=== PATIENT | male | born 1945 | race Caucasian/White ===

== ENCOUNTER 2022-07-03 12:51 | Emergency (ER) | payer MEDICARE, SELFPAY ==
--- NOTE | ~2022-07-03 | CT_ITS ---
EXAMINATION: CT ANGIOGRAM OF THE CHEST WITH AND WITHOUT CONTRAST (CT PULMONARY ANGIOGRAM FOR PE) CLINICAL INFORMATION: Reason for Exam elevated d dimer, chest pain COMPARISON: None TECHNIQUE: Prior to contrast administration, noncontrast localization images were obtained. Subsequently, multidetector volumetric imaging was performed from the thoracic inlet to below the diaphragms following the administration of 75 mL Omnipaque 350 intravenous contrast. No contrast reaction reported Sagittal, coronal, and MIP oblique sagittal reformatted images were obtained on the CT workstation, uploaded to PACS, and reviewed. This CT examination was performed using dose optimization techniques as appropriate, variously including the following: *Automated exposure control *Adjustment of mA and/or kV according to patient size (this includes techniques or standardized protocols for targeted exams where dose is matched to indication/reason for exam; i.e. extremities or head) *Use of iterative reconstruction technique Total exam dose-length product 542 mGy-cm FINDINGS: QUALITY OF STUDY/CONTRAST BOLUS: Satisfactory. PULMONARY ARTERIES: There is low attenuation within a segmental pulmonary artery extending into the middle lobe bifurcation. Seen on image 224. Coronal image 49-51. I must consider PE here. Otherwise no convincing evidence of filling defect to suggest a pulmonary embolism. The septum is not bowed. There is no reflux of contrast into the liver. The thoracic inlet is within normal limits. The axillary regions are felt to be unremarkable. Partially imaged upper abdominal structures within normal limits. Partial imaging the palpable cyst in the right kidney. Centrally there is no evidence for bulky adenopathy. Some shotty nodes are noted. Imaging the lung griffin. Right lung; There is evidence for COPD. Probable chronic lung markings. No convincing evidence for an acute infiltrate. 2 mm nodule on image 241 of series 7. 4 mm nodule on image 270 anterior. 4 mm pleural-based nodule on image 258. Mild nodularity in the major fissure likely small lymph nodes. Left lung; Again no convincing evidence for significant infiltrate or effusion. 5 mm nodule in the left upper lung on image 68 3 mm nodule near the major fissure on image 115 3 mm nodule on image 125 laterally 4 mm nodule laterally on image 215 Some minimal nodularity in the major fissure may be small lymph nodes. Review of the bone windows does not demonstrate evidence for bony lesion. CT/CT angio chest PE protocol IMPRESSION: Findings as described above. I must consider a PE within a segment of the right middle lobe pulmonary artery. No effusion. Probable chronic markings. No significant infiltrate. There is COPD. Scattered areas of lung nodularity described above. Recommendation is low-dose noncontrast 3-6 months for continued evaluation.. This critical result was discussed with Sophia White at 5:36 PM on 07/03/2022 and it was ascertained that the content and urgency of the report was understood at the time of direct communication. VTE: positive
--- NOTE | ~2022-07-03 | XR_ITS ---
EXAMINATION: XR CHEST CLINICAL INFORMATION: Chest pain. COMPARISON: None TECHNIQUE: 2 views of the chest were obtained. FINDINGS: Mild linear markings are seen in the lingula. The left upper lung field and right lung are clear. There are no pleural effusions. The heart and mediastinal structures are unremarkable. XR/XR chest 2V IMPRESSION: Mild linear atelectasis versus scarring in the lingula. No acute cardiopulmonary process.
--- NOTE | 2022-07-03 12:58 | ECG_ITS ---
Test Reason : chest pain Blood Pressure : / mmHG Vent. Rate : 067 BPM Atrial Rate : 082 BPM P-R Int : 264 ms QRS Dur : 110 ms QT Int : 432 ms P-R-T Axes : 050 091 023 degrees QTc Int : 456 ms Sinus rhythm with marked sinus arrhythmia with 1st degree A-V block Rightward axis Intra-ventricular conduction delay Low voltage QRS Abnormal ECG No previous ECGs available Referred By: Sosa White Electronically Signed By:GISELL STACY MD
--- NOTE | 2022-07-03 13:03 | ED.GENADULT ---
HPI - General Adult General Chief complaint: Chest Pain Stated complaint: UPPER CHEST DISCOMFORT WHILE DRIVING,FEELS BETTER Time Seen by Provider: 07/03/22 13:03 Source: patient, family () and EMS Mode of arrival: EMS Limitations: no limitations History of Present Illness HPI narrative: Patient is a 77 year old assigned male at with a history of an LA in 1992 or 1993 presenting to the emergency department today with chest pain that has resolved. Patient states that he had what felt like heart burn earlier, took 2 tums, the pain got better, and then the pain came on again while he was driving. Patient states that when the pain came on the final time, he got somewhat dizzy and then it resolved. Patient states that he is currently pain free. Patient states he takes a daily ASA but no other anti-coagulation medications. Patient denies any current dizziness, lightheadedness, abdominal pain, nausea, vomiting, fever, chills, blurry vision, double vision, loss of vision, chest pain, difficulty breathing, shortness of breath, back pain, night sweats, pain with urination, increased urinary frequency, increased urinary urgency, blood in his urine or stool, syncope or a near syncopal episode, recent trauma or falls, bowel incontinence, bladder incontinence, bowel retention, bladder retention, or any other complaints at this time. Location: chest Radiation: non-radiation Severity: mild Severity scale (1-10): 2 Pain Consistency: now resolved Relieving factors: none Exacerbating factors: none Associated symptoms: denies other symptoms Treatments prior to arrival: none Related Data Previous Rx's Medication Instructions Recorded apixaban 5 mg (74 tabs) tablets in 5 mg PO BID #74 ea 07/03/22 a dose pack (Eliquis DVT-PE Treat 30D Start) Allergies Allergy/AdvReac Type Severity Reaction Status Date / Time Unable to Assess Allergy Verified 07/03/22 13:17 Review of Systems Constitutional: Constitutional: Reports no additional constitutional complaints, Denies chills, Denies fever(s) and Denies night sweats Eyes: Eyes: Reports no additional eye complaints, Denies blurry vision, Denies change in vision, Denies diplopia, Denies eye discharge, Denies loss of vision and Denies eye pain ENT: Denies dizziness Cardiovascular: Cardiovascular: Reports no additional cardiovascular complaints, Reports chest pain (resolved), Denies lightheadedness, Denies Loss of Consciousness and Denies dyspnea Respiratory: Respiratory: Reports no additional respiratory complaints and Denies dyspnea Gastrointestinal: Gastrointestinal: Reports no additional gastrointestinal complaints, Denies abdominal pain, Denies melena, Denies hematochezia, Denies change in bowel habits and Denies change in stool character Genitourinary: Genitourinary: Reports no additional male genitourinary complaints, Denies hematuria, Denies oliguria, Denies difficulty urinating, Denies dysuria, Denies urinary frequency, Denies urinary hesitancy, Denies urinary incontinence and Denies urinary urgency Musculoskeletal: Musculoskeletal: Reports no additional musculoskeletal complaints, Denies numbness and Denies tingling Neurologic: Denies dizziness, Denies loss of vision, Denies numbness and Denies tingling Psychiatric: Psychiatric: Reports no additional psychiatric complaints Endocrine: Endocrine: Reports no additional endocrine complaints Hematologic/Lymphatic: Hematologic/Lymphatic: Reports no additional hematologic/lymphatic complaints Allergic/Immunologic: Allergic/Immunologic: Reports no additional allergic/immunologic complaints PMFSH Past Medical History Attestation statement: The following information was validated with the patient. Source: old records reviewed Social History Social History Advance Directives: No Physical Exam ED Vital Signs: Vital Signs - 24 hr 07/03/22 13:07 07/03/22 13:52 07/03/22 16:00 Temperature 97.8 F 97.7 F Pulse Rate 96 83 55 Respiratory Rate 18 16 18 Blood Pressure 142/75 H 147/67 H Pulse Oximetry 99 99 98 Oxygen Delivery Method Room Air Room Air Room Air 07/03/22 18:00 Temperature 97.7 F Pulse Rate 54 Respiratory Rate 16 Blood Pressure 134/71 Pulse Oximetry 94 Oxygen Delivery Method Room Air BMI result Body Mass Index 30.8 Const General: cooperative, no acute distress, alert and awake Nutritional Appearance: well nourished Orientation/consciousness: patient oriented x3 Limitations: no limitations HENMT Head: Yes normal to inspection and Yes atraumatic Ears: hearing grossly normal bilaterally and external ears normal General nose exam: Normal external nose present, no nasal discharge noted and no epistaxis Face and sinus: Yes normal facial exam, No abrasion and No laceration Mouth: Normal oral and palatal mucosa present, no drooling and no muffled voice Eyes General: appearance normal, both eyes and all related structures Periorbital: periorbital findings normal Eyelids: Yes eyelids normal Conjunctivae: conjunctivae normal Pupils: Equal, round and reactive pupils present EOM: EOMs intact bilaterally Neck Neck: Yes normal visual inspection, Yes full ROM and Yes no lymphadenopathy Chest Chest palpation & inspection: normal inspection of the chest Resp Effort & Inspection: normal respiratory effort and able to speak in complete sentences Auscultation: clear to auscultation bilaterally Cardio Rate: regular rate Rhythm: regular rhythm GI Inspection: Yes normal to inspection Neuro General: patient oriented x3 and moves all extremities Cranial nerves: Yes Equal, round and reactive pupils present Cognition (Neuro): normal cognition Motor exam (neuro): 5/5 motor strength present throughout Sensory Exam: Normal double simultaneous stimulation for sensation Coordination: [id number] test normal Extrem General: Yes normal to inspection, Yes full ROM and Yes capillary refill normal Psych Appearance: grossly normal Mental Status: mental status grossly normal Affect: normal affect Attitude: cooperative Thought process: Normal thought process present Thought content: Normal thought content present Insight: Good insight present (Psych) Medications Administered Discontinued Medications Generic Name Dose Route Start Last Admin Trade Name Freq PRN Reason Stop Dose Admin Iohexol 100 ml 07/03/22 16:40 07/03/22 16:40 Iohexol 350 Mg/Ml 100 Ml Infus..Btl IV 07/03/22 16:41 75 ml ONCE ONE Administration Medical Decision Making [facility] Narrative Medical decision making narrative: Patient is a 77 year old assigned male at with a history of a previous LA presenting to the emergency department today after an episode of chest pain. Patient's physical exam was unremarkable. Patient's blood work showed an elevated d dimer of 304 but was otherwise unremarkable. Patient's inital troponin was 4.9 with a repeat of 3.8. Patient's EKG was unremarkable. Patient's chest x-ray showed no acute process. Due to the patient's elevated D dimer and previous episode of chest pain, a CT PE of the chest was obtained that showed a small segmental PE of the right middle lobe pulmonary artery. When speaking to the radiologist, he felt that it could be an old finding but couldn't be for sure. Radiologist stated very plainly that there was no right heart strain. Upon reassessment patient was in no acute pulmonary distress and was saturating >95% throughout his entire stay in the Emergency Department. Patient to be discharged on Eliquis. I explained my physical exam findings as well as all test results to the patient and the patient's . I answered all questions asked by the patient and the patient's . I stressed the importance of the patient taking his medication as prescribed. 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 I stressed the importance of the patient returning to the emergency department immediately if his symptoms were to worsen or if he were to develop any dizziness, shortness of breath, difficulty breathing, chest pain, blurry vision, loss of vision, nausea, vomiting, abdominal pain, fever, chills, back pain, or any other complaints. Patient and the patient's verbalized agreement and understanding with this treatment plan and discharge. Medical Records Medical records reviewed: Yes I reviewed the patient's medical records. Lab Data Lab results reviewed: Yes I reviewed the patient's lab results. Result diagrams: 07/03/22 13:54 07/03/22 14:40 Labs: Lab Results 07/03/22 07/03/22 07/03/22 Range/Units 13:50 13:50 13:54 WBC 9.6 (4.8-10.8) X10*3/uL RBC 5.02 (4.60-5.80) X10*6/uL Hgb 16.2 (14.0-18.0) g/dl Hct 47.3 (42.0-52.0) % MCV 94.2 (80.0-98.0) fL MCH 32.3 (27.0-33.0) pg MCHC 34.2 (31.0-36.0) g/dl RDW 14.1 (11.0-16.0) % Plt Count 117 L (160-400) X10*3/uL MPV 10.0 (9.4-12.4) fL Immature Gran % (Auto) 0.4 (0.0-0.4) % Neut % (Auto) 74.8 H (45-73) % Lymph % (Auto) 14.3 L (20-40) % [place] % (Auto) 7.3 (2-11) % Eos % (Auto) 2.6 (0-4) % Baso % (Auto) 0.6 (0-2) % Lymph # (Auto) 1.4 (1.2-4.9) X10*3/uL [place] # (Auto) 0.7 (0.1-1.2) X10*3/uL Eos # (Auto) 0.3 (0.0-0.4) X10*3/uL Baso # (Auto) 0.1 (0.0-0.2) X10*3/uL Abs Immat Gran (auto) 0.04 H (0.00-0.03) X10*3/uL Absolute Neuts (auto) 7.2 (2.0-8.3) x10*3/uL Absolute Nucleated RBC 0.000 (0.0-0.012) X10*3/uL Nucleated RBC % (auto) 0.0 (0.0-0.2) /100WBC PT 11.5 (10.0-13.1) SEC INR 1.0 (0.9-1.1) APTT 29.9 (26.0-36.4) SEC D-Dimer High Sensitivty NG/ML Sodium (135-145) mmol/L Potassium (3.3-5.1) mmol/L Chloride (96-108) mmol/L Carbon Dioxide (22-29) mmol/L Anion Gap (12-20) BUN (9-16) mg/dL Creatinine (0.5-1.4) mg/dL Estim Creat Clear Calc Estimated GFR Random Glucose (60-115) mg/dL Calcium (8.4-10.2) mg/dL Magnesium (1.6-2.6) mg/dL Total Bilirubin (0.0-1.0) mg/dL AST (5-37) U/L ALT (0-40) U/L Alkaline Phosphatase (39-117) U/L Troponin I High Sens 4.9 (<3.5-35.0) ng/L B-Natriuretic Peptide (<100) pg/mL Total Protein (6.5-8.0) g/dL Albumin (3.5-5.0) g/dL 07/03/22 07/03/22 07/03/22 Range/Units 13:54 14:40 16:10 WBC (4.8-10.8) X10*3/uL RBC (4.60-5.80) X10*6/uL Hgb (14.0-18.0) g/dl Hct (42.0-52.0) % MCV (80.0-98.0) fL MCH (27.0-33.0) pg MCHC (31.0-36.0) g/dl RDW (11.0-16.0) % Plt Count (160-400) X10*3/uL MPV (9.4-12.4) fL Immature Gran % (Auto) (0.0-0.4) % Neut % (Auto) (45-73) % Lymph % (Auto) (20-40) % [place] % (Auto) (2-11) % Eos % (Auto) (0-4) % Baso % (Auto) (0-2) % Lymph # (Auto) (1.2-4.9) X10*3/uL [place] # (Auto) (0.1-1.2) X10*3/uL Eos # (Auto) (0.0-0.4) X10*3/uL Baso # (Auto) (0.0-0.2) X10*3/uL Abs Immat Gran (auto) (0.00-0.03) X10*3/uL Absolute Neuts (auto) (2.0-8.3) x10*3/uL Absolute Nucleated RBC (0.0-0.012) X10*3/uL Nucleated RBC % (auto) (0.0-0.2) /100WBC PT (10.0-13.1) SEC INR (0.9-1.1) APTT (26.0-36.4) SEC D-Dimer High Sensitivty 304 NG/ML Sodium 141 (135-145) mmol/L Potassium 4.7 (3.3-5.1) mmol/L Chloride 105 (96-108) mmol/L Carbon Dioxide 23 (22-29) mmol/L Anion Gap 18 (12-20) BUN 25 H (9-16) mg/dL Creatinine 1.30 (0.5-1.4) mg/dL Estim Creat Clear Calc 63.4 Estimated GFR 54 Random Glucose 112 (60-115) mg/dL Calcium 9.5 (8.4-10.2) mg/dL Magnesium 2.0 (1.6-2.6) mg/dL Total Bilirubin 1.4 H (0.0-1.0) mg/dL AST 23 (5-37) U/L ALT 21 (0-40) U/L Alkaline Phosphatase 50 (39-117) U/L Troponin I High Sens (<3.5-35.0) ng/L B-Natriuretic Peptide 95 (<100) pg/mL Total Protein 7.8 (6.5-8.0) g/dL Albumin 4.3 (3.5-5.0) g/dL 07/03/22 Range/Units 18:19 WBC (4.8-10.8) X10*3/uL RBC (4.60-5.80) X10*6/uL Hgb (14.0-18.0) g/dl Hct (42.0-52.0) % MCV (80.0-98.0) fL MCH (27.0-33.0) pg MCHC (31.0-36.0) g/dl RDW (11.0-16.0) % Plt Count (160-400) X10*3/uL MPV (9.4-12.4) fL Immature Gran % (Auto) (0.0-0.4) % Neut % (Auto) (45-73) % Lymph % (Auto) (20-40) % [place] % (Auto) (2-11) % Eos % (Auto) (0-4) % Baso % (Auto) (0-2) % Lymph # (Auto) (1.2-4.9) X10*3/uL [place] # (Auto) (0.1-1.2) X10*3/uL Eos # (Auto) (0.0-0.4) X10*3/uL Baso # (Auto) (0.0-0.2) X10*3/uL Abs Immat Gran (auto) (0.00-0.03) X10*3/uL Absolute Neuts (auto) (2.0-8.3) x10*3/uL Absolute Nucleated RBC (0.0-0.012) X10*3/uL Nucleated RBC % (auto) (0.0-0.2) /100WBC PT (10.0-13.1) SEC INR (0.9-1.1) APTT (26.0-36.4) SEC D-Dimer High Sensitivty NG/ML Sodium (135-145) mmol/L Potassium (3.3-5.1) mmol/L Chloride (96-108) mmol/L Carbon Dioxide (22-29) mmol/L Anion Gap (12-20) BUN (9-16) mg/dL Creatinine (0.5-1.4) mg/dL Estim Creat Clear Calc Estimated GFR Random Glucose (60-115) mg/dL Calcium (8.4-10.2) mg/dL Magnesium (1.6-2.6) mg/dL Total Bilirubin (0.0-1.0) mg/dL AST (5-37) U/L ALT (0-40) U/L Alkaline Phosphatase (39-117) U/L Troponin I High Sens 3.8 (<3.5-35.0) ng/L B-Natriuretic Peptide (<100) pg/mL Total Protein (6.5-8.0) g/dL Albumin (3.5-5.0) g/dL Imaging Data Chest x-ray: Attestation: I personally reviewed and interpreted this imaging study as follows: My impression: No acute process. Radiologist's impression: EXAMINATION: XR CHEST CLINICAL INFORMATION: Chest pain. COMPARISON: None TECHNIQUE: 2 views of the chest were obtained. FINDINGS: Mild linear markings are seen in the lingula. The left upper lung field and right lung are clear. There are no pleural effusions. The heart and mediastinal structures are unremarkable. XR/XR chest 2V IMPRESSION: Mild linear atelectasis versus scarring in the lingula. No acute cardiopulmonary process. Dictated By: Sam Garcia MD Signed By: Electronically signed by Sam Garcia MD 07/03/[address] scan - chest: Attestation: I personally reviewed and interpreted this imaging study as follows: My impression: Right segmental PE Radiologist's impression: EXAMINATION: CT ANGIOGRAM OF THE CHEST WITH AND WITHOUT CONTRAST (CT PULMONARY ANGIOGRAM FOR PE) CLINICAL INFORMATION: Reason for Exam elevated d dimer, chest pain COMPARISON: None? TECHNIQUE: Prior to contrast administration, noncontrast localization images were obtained. ? Subsequently, multidetector volumetric imaging was performed from the thoracic inlet to below the diaphragms following the administration of 75 mL Omnipaque 350 intravenous contrast. No contrast reaction reported Sagittal, coronal, and MIP oblique sagittal reformatted images were obtained on the CT workstation, uploaded to PACS, and reviewed. This CT examination was performed using dose optimization techniques as appropriate, variously including the following: *Automated exposure control *Adjustment of mA and/or kV according to patient size (this includes techniques or standardized protocols for targeted exams where dose is matched to indication/reason for exam; i.e. extremities or head) *Use of iterative reconstruction technique Total exam dose-length product 542 mGy-cm FINDINGS: QUALITY OF STUDY/CONTRAST BOLUS: Satisfactory. PULMONARY ARTERIES: There is low attenuation within a segmental pulmonary artery extending into the middle lobe bifurcation. Seen on image 224. Coronal image 49-51. I must consider PE here. Otherwise no convincing evidence of filling defect to suggest a pulmonary embolism. The septum is not bowed. There is no reflux of contrast into the liver. The thoracic inlet is within normal limits. The axillary regions are felt to be unremarkable. Partially imaged upper abdominal structures within normal limits. Partial imaging the palpable cyst in the right kidney. Centrally there is no evidence for bulky adenopathy. Some shotty nodes are noted. Imaging the lung griffin. Right lung; There is evidence for COPD. Probable chronic lung markings. No convincing evidence for an acute infiltrate. 2 mm nodule on image 241 of series 7. 4 mm nodule on image 270 anterior. 4 mm pleural-based nodule on image 258. Mild nodularity in the major fissure likely small lymph nodes. Left lung; Again no convincing evidence for significant infiltrate or effusion. 5 mm nodule in the left upper lung on image 68 3 mm nodule near the major fissure on image 115 3 mm nodule on image 125 laterally 4 mm nodule laterally on image 215 Some minimal nodularity in the major fissure may be small lymph nodes. Review of the bone windows does not demonstrate evidence for bony lesion. CT/CT angio chest PE protocol IMPRESSION: Findings as described above. I must consider a PE within a segment of the right middle lobe pulmonary artery. ? No effusion. Probable chronic markings. No significant infiltrate. There is COPD. ? Scattered areas of lung nodularity described above. Recommendation is low-dose noncontrast 3-6 months for continued evaluation.. ? This critical result was discussed with Sophia White at 5:36 PM on 07/03/2022 and it was ascertained that the content and urgency of the report was understood at the time of direct communication. VTE: positive Dictated By: Sam Mcmahon MD Signed By: Electronically signed by Sam Mcmahon MD 07/03/22 9249 ECG Data Attestation: I personally reviewed and interpreted this ECG as follows: Prior ECG tracings: available for review Interpretation: Vent. Rate: 067 BPM ? ? Atrial Rate: 082 BPM P-R Int: 264 ms? QRS Dur: 110 ms QT Int: 432 ms ? ? ? P-R-T Axes: 050 091 023 degrees QTc Int: 456 ms ? Sinus rhythm with marked sinus arrhythmia with 1st degree A-V block Rightward axis Borderline ECG No previous ECGs available ? DD/ 1323 Critical Care Time Critical Care Time Critical Care Time: Yes Total Critical Care Time: 30 Attestation: I spent 30 minutes of Critical Care Time with this patient. This does not include time spent on separately reported billable procedures. 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 Return to the emergency department immediately if your symptoms worsen or if you develop any dizziness, shortness of breath, difficulty breathing, chest pain, blurry vision, loss of vision, nausea, vomiting, abdominal pain, fever, chills, back pain, or any other complaints. Prescriptions: New Eliquis DVT-PE Treat 30D Start 5 mg (74 tabs) tablets,dose pack 5 mg PO BID Qty: 74 0RF Referrals: Myles Guzmán MD [Primary Care Provider] - Interventions: ED Discharge Assessment Last Done: 07/03/22 19:40 Discharge Date/Time: 07/03/22 19:41 Print Language: [place]
[2022-07-03 13:07] VITALS: BP 142/75; BP 146/74; PULSE 56; PULSE 96; RESP 18; TEMP 36.6; O2SAT 99; BMI 30.8
[2022-07-03 13:52] VITALS: PULSE 83; RESP 16; O2SAT 99
[2022-07-03 13:59] LABS: MANUAL DIFF FLAG NO
[2022-07-03 14:00] LABS: Basophils Absolute Auto 0.1 X10*3/uL (0.0-0.2); Basophils Percent Auto 0.6 % (0-2); Eosinophils Absolute Auto 0.3 X10*3/uL (0.0-0.4); Eosinophils Percent Auto 2.6 % (0-4); Hematocrit 47.3 % (42.0-52.0); Hemoglobin 16.2 g/dl (14.0-18.0); Imm Gran Abs Auto 0.04 X10*3/uL (0.00-0.03); Imm Gran Pct Auto 0.4 % (0.0-0.4); Lymphocytes Absolute Auto 1.4 X10*3/uL (1.2-4.9); Lymphocytes Percent Auto 14.3 % (20-40); Mean Corpuscular HGB Conc 34.2 g/dl (31.0-36.0); Mean Corpuscular Hemoglobin 32.3 pg (27.0-33.0); Mean Corpuscular Volume 94.2 fL (80.0-98.0); Monocytes Absolute Auto 0.7 X10*3/uL (0.1-1.2); Monocytes Percent Auto 7.3 % (2-11); Neutrophils Absolute Auto 7.2 x10*3/uL (2.0-8.3); Neutrophils Percent Auto 74.8 % (45-73); Platelet Count 117 X10*3/uL (160-400); Red Blood Count 5.02 X10*6/uL (4.60-5.80); Red Cell Distribution Width 14.1 % (11.0-16.0); White Blood Count 9.6 X10*3/uL (4.8-10.8)
[2022-07-03 14:07] LABS: Prothrombin Time 11.5 SEC (10.0-13.1)
[2022-07-03 14:09] LABS: Partial Thromboplastin Time 29.9 SEC (26.0-36.4)
[2022-07-03 14:20] LABS: B Type Natriuretic Peptide 95 pg/mL (<100)
[2022-07-03 14:20] LABS: Troponin-I High Sensitivity 4.9 ng/L (<3.5-35.0)
[2022-07-03 15:07] LABS: Alanine Aminotransferase 21 U/L (0-40); Albumin Level 4.3 g/dL (3.5-5.0); Alkaline Phosphatase 50 U/L (39-117); Anion Gap 18 (12-20); Aspartate Amino Transferase 23 U/L (5-37); Bilirubin Total 1.4 mg/dL (0.0-1.0); Blood Urea Nitrogen 25 mg/dL (9-16); Calcium 9.5 mg/dL (8.4-10.2); Carbon Dioxide 23 mmol/L (22-29); Chloride 105 mmol/L (96-108); Creatinine Clr Calc Pharmacy 63.4; Estimated Glomerular Filt Rate 54; Glucose Random 112 mg/dL (60-115); Potassium 4.7 mmol/L (3.3-5.1); Sodium 141 mmol/L (135-145); Total Protein 7.8 g/dL (6.5-8.0)
[2022-07-03 16:00] VITALS: BP 147/67; PULSE 55; RESP 18; TEMP 36.5; O2SAT 98
[2022-07-03 16:24] LABS: D Dimer High Sensitivity 304 NG/ML
[2022-07-03] MEDS: iohexoL 350 MG/ML 100 ML INFUS..BTL IV (16:40)
[2022-07-03 18:00] VITALS: BP 134/71; PULSE 54; RESP 16; TEMP 36.5; O2SAT 94
[2022-07-03 18:47] LABS: Troponin-I High Sensitivity 3.8 ng/L (<3.5-35.0)
== END 2022-07-03 19:41 | disposition home or self-care (01) ==
PROVIDERS: Physician Assistant Medical; Emergency Provider Emergency Medicine; PCP Internal Medicine
DX: I26.99 Other pulmonary embolism without acute cor pulmonale (principal); R91.8 Other nonspecific abnormal finding of lung field; I25.2 Old myocardial infarction; Z79.82 Long term (current) use of aspirin
CPT/HCPCS: 36415; 71046; 71275; 80053; 83735; 83880; 84484; 85025; 85379; 85610; 85730; 93005; 99284; Q9967

== ENCOUNTER 2023-09-16 09:42 | Outpatient (AMB) | payer MEDICARE, SELFPAY ==
[2023-09-16 09:57] VITALS: BP 120/80; PULSE 81; O2SAT 89; BMI 33.9
--- NOTE | 2023-09-16 09:57 | MHC.OFFVIS ---
Intake Vital Signs 09/16/23 09:57 Height 6 ft Weight 250 lb 3.594 oz BMI 33.9 BP 120/80 Blood Pressure Location Lt brachial Position Sitting Pulse 81 Pulse Source Pulse Oximeter Pulse Oximetry (%) 89 L Oxygen Delivery Method Room Air Intake Visit Reasons: Shortness of breath Intake Note: pt is here to be reestablished for shortness of breath, hx of pulmonary fibrosis, and now in a-fib with possible cardioversion on Thursday. 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 Of his initial visit He was seen by me in August 2019, for shortness of breath on exertion, without any history of wheezing excessive cough. He smoked for about 30 years 1 pack a day but was able to quit in 1993. He quit smoking after he saw his father of lung disease. When I saw him in 2019, I told him that he had a mild pulmonary fibrosis, he definitely had exertional hypoxemia, and we were going to consider starting him on oxygen. He needed further evaluation but, he never came back. Retrospectively I can understand that he was just afraid to be put on oxygen. He has not been treated with for any chronic obstructive pulmonary disease, He say is that last time he had pulmonary function test he almost passed out so he has had no repeat tests. He has history of longstanding hemochromatosis, he sees Dr. Mcnamara at [facility], has had periodic phlebotomies, but not in the last 3 years. He is having gradually increasing amount of shortness of breath on exertion. A few months ago when he was working in the backyard he almost passed out and felt very weak. He denies any chest pain as had had cardiac workup . He is being treated for atrial fibrillation and is on anticoagulation. He is scheduled to have, cardioversion next week. [facility] Medical History (Updated 09/16/23 @ 12:28 by Catrachito Manzo MD) Respiratory failure with hypoxia Polycythemia secondary to hypoxia Pulmonary fibrosis Social History Patient Tobacco Use Status: Former Tobacco user Review of Systems Const All systems reviewed & are unremarkable except as noted in HPI and below Eyes Reports no additional complaints ENT Reports no additional complaints Card Denies chest pain, Denies leg edema and Reports dyspnea on exertion Resp Reports as per HPI and Reports dyspnea on exertion GI Reports heartburn (Treated with med) Reports no additional complaints Musc Reports no additional complaints Skin/Breast Reports system reviewed and no additional complaints, except as documented Neuro Reports no additional complaints Psych Reports no additional complaints Endo Reports no additional complaints Aller/Immun Reports no additional complaints Physical Exam Vital Signs: Last Vital Signs Pulse 81 09/16/23 09:57 BP 120/80 09/16/23 09:57 Pulse Ox 89 L 09/16/23 09:57 Oxygen Delivery Method Room Air 09/16/23 09:57 BMI result Body Mass Index 33.9 Const Other: reddish skin General: healthy appearing, comfortable, no acute distress, alert and awake Orientation/consciousness: patient oriented x3 HEENT Head: Yes normal to inspection General nose exam: No nasal polyps present and No nasal discharge present Face and sinus: Yes sinuses nontender Mouth: oropharynx normal Throat: Yes posterior oropharynx normal Eyes General: appearance normal, both eyes and all related structures Neck Neck: Yes normal visual inspection, Yes no lymphadenopathy, Yes trachea midline and Yes no JVD Thyroid: Thyroid normal Chest Chest palpation & inspection: normal inspection of the chest, normal palpation of entire chest wall and no tenderness Resp Other: Percussion. note resonant Breath sounds are equal on both sides. Inspiratory crackles heard over both lower lobes Cardio Palpation: normal PMI Rate: regular rate Rhythm: abnormal rhythm (atrial fib .) Heart sounds: no gallops and no murmurs Peripheral pulses: Peripheral pulses 2+ throughout GI Palpation (GI): Soft to palpation, nontender, No hepatosplenomegaly present and no masses Auscultation: normal bowel sounds Back/Spine/Pelvis Thoracic/Lumbar Spine: thoracic and lumbar spine normal to inspection Skin General skin exam: no rashes or lesions noted Neuro General: patient oriented x3 and no focal motor deficits Cranial nerves: Yes CN's II-XII intact bilaterally Extrem General: Yes normal to inspection, Yes no clubbing, cyanosis or edema and Yes no calf tenderness Psych Appearance: grossly normal and well kempt Speech and movement: Normal speech and movement present Office Procedures 6 Minute Walk Time:: 10:45 SPO2 % at rest: 87 Pulse at rest: 78 SPO2 % during excercise: 86 Pulse during excercise: 136 SPO2 % after excercise: 93 Pulse after excercise: 94 Distance in yards walked: 240 Kenny Score: 5 Performance Observations:: Akil's SPO2 on room air at rest was 87%, O2 started at 1 lpm and his SPO2 recovered to 93%. Akil walked on level ground and with 1 min. of walking his SPO2 dropped to 86% O2 increased to 2 lpm SPO2 remained at 87%, O2 increased to 3 lpm and his SPO2 recovered to 94%. He maintained his SPO2 93-94% on 3 lpm O2. 77726 - 6 Minute Walk Results Reviewed Results Reviewed: CTA of chest on 07/03/2022. IMPRESSION: Findings as described above. I must consider a PE within a segment of the right middle lobe pulmonary artery. No effusion. Probable chronic markings. No significant infiltrate. There is COPD. Scattered areas of lung nodularity described above. Recommendation is low-dose noncontrast 3-6 months for continued evaluation.. This critical result was discussed with Sophia White at 5:36 PM on 07/03/2022 and it was ascertained that the content and urgency of the report was understood at the time of direct communication.. * I REVIEWED THE IMAGE AND IN ADDITION TO THE ABOVE FINDING, HE ALSO DOES HAVE MILD PERIPHERAL RETICULATION, SUGGESTING PULMONARY FIBROSIS. Assessment & Plan Assessment & Plan (1) Pulmonary fibrosis: Comment: I THINK THIS GENTLEMAN HAS HAD PULMONARY FIBROSIS FOR THE PAST FEW YEARS, IT MAY BE GRADUALLY PROGRESSING, CAUSING HYPOXEMIA. Code(s): J84.10 - Pulmonary fibrosis, unspecified Plan: CT SCAN OF THE CHEST IS ORDERED. ALSO WILL DO COMPLETE PULMONARY FUNCTION TEST. (2) Polycythemia secondary to hypoxia: Comment: PATIENT HAS HISTORY OF WHAT HE DESCRIBES HEMOCHROMATOSIS FOR THE PAST MANY YEARS. RETROSPECTIVELY I THINK HE HAS HAD CHRONIC HYPOXEMIA CAUSING POLYCYTHEMIA. HE HAS BEEN TREATED IN THE PAST WITH PHLEBOTOMIES BUT NOW HAS NOT REQUIRED FOR THE LAST 3 YEARS. Code(s): D75.1 - Secondary polycythemia Plan: EXPLAINED TO THE PATIENT AND I ADVISED HIM TO START USING OXYGEN THERAPY AND THIS SHOULD HELP. (3) Respiratory failure with hypoxia: Comment: PATIENT HAS RESTING WELL EXERCISE INDUCED HYPOXEMIA. O2 SAT AT REST 87-89%. 6 MINUTES WALK, SHOWED QUICK DECOMPENSATION. PATIENT REQUIRED O2 3 L/MINUTE TO MAINTAIN O2 AT 93% DURING WALKING. Code(s): J96.91 - Respiratory failure, unspecified with hypoxia Plan: TALKED TO THE PATIENT IN DETAIL. HE NEEDS O2 THERAPY, 3 L/MINUTE. EXPLAINED ABOUT USING STATIONARY CONCENTRATOR AT HOME AND WHEN HE SLEEPS. EXPLAINED ABOUT USING THE PORTABLE UNIT. ONCE HE STARTS USING O2 REGULARLY HE WILL BE TESTED FOR OXYGEN CONSERVING UNIT ( POC ) Orders: Orders AMB 6 minute walk Today R09.02 - Hypoxemia PFT pulmonary function test Today D75.1 - Secondary polycythemia, J84.10 - Pulmonary fibrosis, unspecified, J96.91 - Respiratory failure, unspecified with hypoxia CT chest wo con - High Res Today D75.1 - Secondary polycythemia, J84.10 - Pulmonary fibrosis, unspecified, J96.91 - Respiratory failure, unspecified with hypoxia Coding Level of Care Code Est Pt Level 4 (63424) Diagnoses Pulmonary fibrosis J84.10 Polycythemia secondary to hypoxia D75.1 Respiratory failure with hypoxia J96.91 CPT Codes Coding ([id number])
[2023-09-16 11:23] VITALS: PULSE 78; O2SAT 87
== END 2023-09-16 11:02 | disposition home or self-care (01) ==
PROVIDERS: PCP Internal Medicine; Visit Provider Internal Medicine
DX: J84.10 Pulmonary fibrosis, unspecified (principal); D75.1 Secondary polycythemia; J96.91 Respiratory failure, unspecified with hypoxia
CPT/HCPCS: 94618; 99214

== ENCOUNTER → 2023-09-16 09:42 | Outpatient (BNVA) | payer MEDICARE, SELFPAY | PROVIDERS: PCP Internal Medicine; Visit Provider Internal Medicine | DX: J84.10 Pulmonary fibrosis, unspecified (principal); J96.91 Respiratory failure, unspecified with hypoxia; D75.1 Secondary polycythemia | CPT/HCPCS: 94618; 99212 ==

== ENCOUNTER 2023-09-25 10:02 | Outpatient (REF) | payer MEDICARE, SELFPAY ==
[2023-09-25 08:11] VITALS: PULSE 80; RESP 16; O2SAT 98
--- NOTE | 2023-09-25 13:19 | PFT_ITS ---
Indication: Dyspnea Spirometry [FEV1 to FVC 80%; FEV1 2.58 L; FVC 3.24 L. no significant response to bronchodilators noted. Maximum voluntary ventilation 118% predicted] Lung Volumes [Total lung capacity 59% predicted; expiratory reserve volume 39% predicted] Diffusion Capacity [DLCO 33% predicted it does not correct to normal when corrected for the alveolar volume.] Comparisons [None] Interpretation [No obstructive ventilatory defects. No significant response to bronchodilators noted. Normal maximum voluntary ventilation. The patient does have a restrictive ventilatory defect consistent with moderate restrictive lung disease. In part due to an elevated BMI with a decrease in the expiratory reserve volume. Although, can not rule out parenchymal lung disease. The patient does have a severe diffusion impairment due to the findings. Clinical correlation warranted.] MTDD
== END 2023-09-25 10:03 | disposition home or self-care (01) ==
LOC: HO.RESP 10:02
PROVIDERS: PCP Internal Medicine; Visit Provider Internal Medicine
DX: J96.91 Respiratory failure, unspecified with hypoxia (principal); D75.1 Secondary polycythemia; J84.10 Pulmonary fibrosis, unspecified
CPT/HCPCS: 94010; 94640; 94727; 94729

== ENCOUNTER → 2023-09-25 13:19 | Outpatient (BNV) | payer MEDICARE, SELFPAY | PROVIDERS: PCP Internal Medicine; Visit Provider Hospitalist | DX: J96.91 Respiratory failure, unspecified with hypoxia (principal) | CPT/HCPCS: 94060; 94727; 94729 ==

== ENCOUNTER 2023-10-26 09:35 | Outpatient (REF) | payer MEDICARE, SELFPAY ==
--- NOTE | ~2023-10-26 | CT_ITS ---
EXAMINATION: CT CHEST WITHOUT CONTRAST CLINICAL INFORMATION: Respiratory failure; pulmonary fibrosis; hypoxia. COMPARISON: CTA chest dated 07/03/2022. TECHNIQUE: Multidetector volumetric CT imaging of the chest was done. Axial MIP volume rendering provided. Sagittal and coronal reformatted images were obtained. This CT examination was performed using dose optimization techniques as appropriate, variously including the following: *Automated exposure control *Adjustment of mA and/or kV according to patient size (this includes techniques or standardized protocols for targeted exams where dose is matched to indication/reason for exam; i.e. extremities or head) *Use of iterative reconstruction technique DLP: 281 mGy-cm FINDINGS: CHAMPION OF SUSTAINABLE DESIGN: The lungs are relatively well-expanded. There is chronic mild to moderate elevation of the right hemidiaphragm. There are increased reticular markings, with a bibasilar predominance. LUNGS: Anteriorly within the right middle lobe (11:107), a stable 5 mm noncalcified nodule is seen. There are tiny benign, calcified right lung granulomas. There are scattered small benign fissural lymph nodes abutting the right major and minor fissures. At the posterior left apex (11:39), a stable 6 mm noncalcified subpleural nodule is seen. Within the apicoposterior segment of the left upper lobe laterally (11:64 and 66), there are 2 stable noncalcified 4 mm nodules. Within the lingula (10:108), a 4 mm noncalcified subpleural nodule is seen. At the lateral left base (11:169), a stable 4 mm noncalcified subpleural nodule is seen. There are a few benign fissural lymph nodes again abutting the left major fissure. There is mild centrilobular and paraseptal emphysematous change. There are increased subpleural linear and polygonal markings. No overt honeycombing is seen. No mass, infiltrate or groundglass opacity is seen. There is no generalized small airway thickening. There is mild air trapping on the end expiration sequence. The central airways appear patent. MEDIASTINUM: The thyroid is unremarkable. There is no thoracic aortic aneurysm. There are mild atherosclerotic calcifications of the great vessel origins and thoracic aorta. There are shotty mediastinal lymph nodes, one of the largest in the right paratracheal region showing a short axis diameter of 8 mm (10:24). No sizable mediastinal or hilar lymphadenopathy is seen. CORONARY ARTERY CALCIFICATION: Moderately severe. PLEURA: There is no pleural effusion. No pleural mass or thickening. AXILLA: No lymphadenopathy. There is mild bilateral gynecomastia. UPPER ABDOMEN: Unremarkable. OSSEOUS STRUCTURES: There is multi-level moderate to marked cervicothoracic anterior endplate arthropathy. No acute or aggressive osseous finding is seen. CT/CT chest wo con - High Res IMPRESSION: 1. Multiple stable (from 07/03/2022) pulmonary nodules are seen, the largest at the posterior left apex measuring 6 mm. According to the UPDATED 2017 Fleischner Society recommendations, the advised follow-up imaging for multiple solid nodules, the largest measuring 6 mm or greater, is: LOW RISK PATIENT: CT at 3-6 months, then consider CT at 18-24 months. HIGH RISK PATIENT: CT at 3-6 months, then at 18-24 months. 2. 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 The appearance is stable from 07/03/2022. 3. There is no thoracic lymphadenopathy or pleural effusion. 4. There are moderately severe coronary artery atherosclerotic calcifications. 5. There is mild bilateral gynecomastia. 6. There are degenerative changes of the spine. No aggressive osseous lesion is seen. Fleischner guidelines were followed.
== END 2023-10-26 09:36 | disposition home or self-care (01) ==
LOC: HO.CT 09:35
PROVIDERS: PCP Internal Medicine; Visit Provider Internal Medicine
DX: J96.91 Respiratory failure, unspecified with hypoxia (principal); J84.10 Pulmonary fibrosis, unspecified; D75.1 Secondary polycythemia
CPT/HCPCS: 71250

== ENCOUNTER 2023-11-04 10:12 | Outpatient (REF) | payer MEDICARE, SELFPAY ==
[2023-11-04 11:21] LABS: MANUAL DIFF FLAG NO
[2023-11-04 11:50] LABS: Basophils Absolute Auto 0.1 X10*3/uL (0.0-0.2); Basophils Percent Auto 0.5 % (0-2); Eosinophils Absolute Auto 0.3 X10*3/uL (0.0-0.4); Eosinophils Percent Auto 2.9 % (0-4); Hematocrit 48.2 % (42.0-52.0); Hemoglobin 16.4 g/dl (14.0-18.0); Imm Gran Abs Auto 0.05 X10*3/uL (0.00-0.03); Imm Gran Pct Auto 0.5 % (0.0-0.4); Lymphocytes Absolute Auto 1.7 X10*3/uL (1.2-4.9); Lymphocytes Percent Auto 17.6 % (20-40); Mean Corpuscular Hemoglobin 31.7 pg (27.0-33.0); Mean Corpuscular Volume 93.1 fL (80.0-98.0); Mean Platelet Volume 10.7 fL (9.4-12.4); Monocytes Absolute Auto 0.9 X10*3/uL (0.1-1.2); Neutrophils Absolute Auto 6.8 x10*3/uL (2.0-8.3); Neutrophils Percent Auto 69.5 % (45-73); Platelet Count 125 X10*3/uL (160-400); Red Blood Count 5.18 X10*6/uL (4.60-5.80); Red Cell Distribution Width 13.2 % (11.0-16.0); White Blood Count 9.9 X10*3/uL (4.8-10.8)
[2023-11-04 12:52] LABS: Anion Gap 14 (12-20); Blood Urea Nitrogen 25 mg/dL (9-16); Calcium 9.9 mg/dL (8.4-10.2); Carbon Dioxide 28 mmol/L (22-29); Chloride 104 mmol/L (96-108); Estimated Glomerular Filt Rate 53; Glucose Random 112 mg/dL (60-115); Iron 200 mcg/dL (45-160); Percent Iron Saturation 74 % (15-50); Potassium 4.6 mmol/L (3.3-5.1); Sodium 141 mmol/L (135-145); Total Iron Binding Capacity 270 mcg/dL (228-428); Unsaturated Iron Binding 70 ug/dL
== END 2023-11-04 10:13 | disposition home or self-care (01) ==
LOC: HO.LAB 10:12
PROVIDERS: PCP Internal Medicine; Visit Provider Internal Medicine
DX: J44.9 Chronic obstructive pulmonary disease, unspecified (principal); J96.91 Respiratory failure, unspecified with hypoxia; J84.10 Pulmonary fibrosis, unspecified; D75.1 Secondary polycythemia; Z79.899 Other long term (current) drug therapy; Z86.711 Personal history of pulmonary embolism; Z99.81 Dependence on supplemental oxygen
CPT/HCPCS: 36415; 80048; 83540; 85025; 94618; 99212

== ENCOUNTER 2023-11-04 10:12 | Outpatient (AMB) | payer MEDICARE, SELFPAY ==
[2023-11-04 10:16] VITALS: BP 104/62; PULSE 65; O2SAT 93; BMI 33.9
--- NOTE | 2023-11-04 10:16 | MHC.OFFVIS ---
Intake Vital Signs 11/04/23 10:16 Height 6 ft Weight 250 lb 3.594 oz BMI 33.9 BP 104/62 Blood Pressure Location Lt brachial Position Sitting Pulse 65 Pulse Source Pulse Oximeter Pulse Oximetry (%) 93 Oxygen Delivery Method Nasal Cannula Oxygen Flow Rate 2.5 Intake Visit Reasons: Shortness of breath Intake Note: pt is here for follow up and states he might be interested in POC. Family Services Specialist Required: No Allergies No Known Allergies Allergy (Verified 11/04/23 10:25) Medication List - Last Reconciled 11/04/23 by Catrachito Manzo MD apixaban (Eliquis) 5 mg PO BID atenolol 25 mg PO DAILY atorvastatin 10 mg PO BEDTIME esomeprazole magnesium (Nexium) 20 mg PO DAILY [id number] 500 mcg- 750 mg (Nicotinamide (with chromium)) 2 tabs PO DAILY Do you need a note to return to daycare/school/sports/work: No HPI Shortness of breath HPI Details 78 years old gentleman is here for follow-up after his workup including pulmonary function test and CT scan of the chest. Since his last visit he has been on oxygen 3 L/minute, and he definitely feels better. 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 He has very little cough or wheezing. He is also being treated for pulmonary embolism, detected in 2021 with a CTA . He does have COPD and chronic interstitial lung disease , similar to the CT scan in 202. Also small pulmonary nodules are noted 1 being 6 mm, which needs to be watched closely. It should be noted that he has had longstanding diagnosis of Polycythemia , has had phlebotomies in the past but not for the last 3 years. He has not been seeing the security representative for the last few years. [facility] Medical History Pulmonary nodules Respiratory failure with hypoxia Polycythemia secondary to hypoxia Pulmonary fibrosis Social History Patient Tobacco Use Status: Former Tobacco user Review of Systems Const All systems reviewed & are unremarkable except as noted in HPI and below Eyes Reports no additional complaints ENT Reports no additional complaints Card Denies chest pain, Denies leg edema and Reports dyspnea on exertion Resp Reports as per HPI and Reports dyspnea on exertion GI Reports heartburn (Treated with med) Reports no additional complaints Musc Reports no additional complaints Skin/Breast Reports system reviewed and no additional complaints, except as documented Neuro Reports no additional complaints Psych Reports no additional complaints Endo Reports no additional complaints Aller/Immun Reports no additional complaints Physical Exam Vital Signs: Last Vital Signs Pulse 65 11/04/23 10:16 BP 104/62 11/04/23 10:16 Pulse Ox 93 11/04/23 10:16 Oxygen Delivery Method Nasal Cannula 11/04/23 10:16 Oxygen Flow Rate 2.5 11/04/23 10:16 BMI result Body Mass Index 33.9 Const Other: reddish skin General: healthy appearing, comfortable, no acute distress, alert and awake Orientation/consciousness: patient oriented x3 HEENT Head: Yes normal to inspection General nose exam: No nasal polyps present and No nasal discharge present Face and sinus: Yes sinuses nontender Mouth: oropharynx normal Throat: Yes posterior oropharynx normal Eyes General: appearance normal, both eyes and all related structures Neck Neck: Yes normal visual inspection, Yes no lymphadenopathy, Yes trachea midline and Yes no JVD Thyroid: Thyroid normal Chest Chest palpation & inspection: normal inspection of the chest, normal palpation of entire chest wall and no tenderness Resp Other: Percussion. note resonant Breath sounds are equal on both sides. The breath sounds are distant with prolonged expiratory phase. Inspiratory crackles heard over both lower lobes Cardio Palpation: normal PMI Rate: regular rate Rhythm: abnormal rhythm (atrial fib .) Heart sounds: no gallops and no murmurs Peripheral pulses: Peripheral pulses 2+ throughout GI Palpation (GI): Soft to palpation, nontender, No hepatosplenomegaly present and no masses Auscultation: normal bowel sounds Back/Spine/Pelvis Thoracic/Lumbar Spine: thoracic and lumbar spine normal to inspection Skin General skin exam: no rashes or lesions noted Neuro General: patient oriented x3 and no focal motor deficits Cranial nerves: Yes CN's II-XII intact bilaterally Extrem General: Yes normal to inspection, Yes no clubbing, cyanosis or edema and Yes no calf tenderness Psych Appearance: grossly normal and well kempt Speech and movement: Normal speech and movement present Office Procedures 6 Minute Walk Time:: 10:45 SPO2 % at rest: 91 Pulse at rest: 68 SPO2 % during excercise: 78 Pulse during excercise: 80 SPO2 % after excercise: 92 Pulse after excercise: 65 Distance in yards walked: 120 Performance Observations:: Akil walked on level ground without assistance, he walked for 25 yards before his SPO2 decreased to 78% on room air. Pulsed O2 started at setting #2 SPO2 did not recover until setting #5 but dropped during exertion. O2 started at 2 lpm continuous and his SPO2 recovered to 92%. 59170 - 6 Minute Walk Results Reviewed Results Reviewed: Pulmonary function test results are reviewed with the patient there is evidence of moderately severe restrictive pulmonary disorder total lung capacity only 59% residual volume is 46% Diffusion capacity 33% and corrects to 53% when corrected with volume FEV1 76% FEF 2570 589% and improves by 20% after bronchodilator therapy. Patient had 6 minutes walk test and tried to use the oxygen conserving mode. He failed, and O2 sat fell into mid 80s with 3 and even up to 4 L minute. Finally he does okay with 3 L/minute with the regular flow. CT scan of the chest is consistent with chronic interstitial lung disease/ can most likely pulmonary fibrosis. Also there is a 6 mm pulmonary nodule, sub pleural, in posterior left apex. He also has an old right middle lobe nodule which is stable at 5 mm size There are scattered small benign fissural lymph nodes abutting the right major and minor fissures. Assessment & Plan Assessment & Plan (1) Pulmonary fibrosis: Comment: I THINK THIS GENTLEMAN HAS HAD PULMONARY FIBROSIS FOR THE PAST FEW YEARS, IT MAY BE GRADUALLY PROGRESSING, CAUSING HYPOXEMIA. Code(s): J84.10 - Pulmonary fibrosis, unspecified Plan: DISCUSS IN DETAIL ABOUT HIS PULMONARY FIBROSIS. WE DISCUSSED ABOUT POSSIBLE TREATMENT. REGIMENS I TOLD HIM THAT NO PARTICULAR MEDICATION AT THIS TIME WOULD REVERSE HIS PROCESS. DISCUSSED ABOUT POSSIBILITY OF USING ANTIFIBROTIC AGENTS BUT NOT AT THIS TIME. HE DOES HAVE SOME DEGREE OF PULMONARY EMPHYSEMA ON THE CT SCAN, AND PROBABLY DOES HAVE MILD COPD ALONG WITH PULMONARY FIBROSIS. I THINK IT IS WORTH TRYING A BRONCHODILATOR INHALER AND SEE IF HE STARTS SHOWING SOME IMPROVEMENT. FOR THIS REASON I HAVE PRESCRIBED SPIRIVA RESPIMAT 2 INHALATIONS DAILY (2) Polycythemia secondary to hypoxia: Comment: PATIENT HAS HISTORY OF WHAT HE DESCRIBES HEMOCHROMATOSIS FOR THE PAST MANY YEARS. RETROSPECTIVELY I THINK HE HAS HAD CHRONIC HYPOXEMIA CAUSING POLYCYTHEMIA. HE HAS BEEN TREATED IN THE PAST WITH PHLEBOTOMIES BUT NOW HAS NOT REQUIRED FOR THE LAST 3 YEARS. Code(s): D75.1 - Secondary polycythemia Plan: I HAVE REPEATED HIS COMPLETE LAB ONCE AGAIN, HE HAS HAD NO TEST FOR THE LAST FEW YEARS. 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 (3) Respiratory failure with hypoxia: Comment: PATIENT HAS RESTING WELL EXERCISE INDUCED HYPOXEMIA. O2 SAT AT REST 87-89%. 6 MINUTES WALK, SHOWED QUICK DECOMPENSATION. SINCE HIS LAST VISIT HE HAS BEEN USING OXYGEN 3 L/MINUTE 24 HOURS A DAY. HE WAS REQUESTING TO BE CHECKED FOR HIS ELIGIBILITY TO HAVE A POC . Code(s): J96.91 - Respiratory failure, unspecified with hypoxia Plan: 6 MINUTES WALK TEST WAS DONE USING POC. , HE FAILED HAS HE COULD NOT KEEP HIS O2 SAT ABOVE 90% EVEN WITH 4 L/MINUTE. HE WAS RESTARTED ON HIS USUAL CONTINUOUS FLOW 3 L/MINUTE AND DID OKAY. (4) Pulmonary nodules: Comment: A NEW 6 MM PULMONARY NODULE IN RIGHT APEX . WHICH NEEDS TO BE FOLLOWED UP I THINK WE SHOULD REPEAT CT SCAN IN 6 MONTHS FROM NOW. Code(s): R91.8 - Other nonspecific abnormal finding of lung field Plan: ABOVE Orders: Orders Basic Metabolic Panel Today D75.1 - Secondary polycythemia, J96.91 - Respiratory failure, unspecified with hypoxia AMB 6 minute walk Today J96.91 - Respiratory failure, unspecified with hypoxia Complete Blood Count Auto Diff Today D75.1 - Secondary polycythemia IRON PROFILE Today D75.1 - Secondary polycythemia Medications: New tiotropium bromide 2.5 mcg/actuation (Spiriva Respimat) 2 puffs inhalation DAILY 30 days 4 grams 2RF copd Coding Level of Care Code Est Pt Level 4 (76967) Diagnoses Pulmonary fibrosis J84.10 Polycythemia secondary to hypoxia D75.1 Respiratory failure with hypoxia J96.91 Pulmonary nodules R91.8 CPT Codes Coding ([id number])
[2023-11-04 10:56] VITALS: PULSE 68; O2SAT 91
== END 2023-11-04 11:06 | disposition home or self-care (01) ==
PROVIDERS: PCP Internal Medicine; Visit Provider Internal Medicine
DX: J84.10 Pulmonary fibrosis, unspecified (principal); D75.1 Secondary polycythemia; J96.91 Respiratory failure, unspecified with hypoxia; R91.8 Other nonspecific abnormal finding of lung field
CPT/HCPCS: 94618; 99214

== ENCOUNTER 2024-01-07 10:51 | Outpatient (AMB) | payer MEDICARE, SELFPAY ==
[2024-01-07 11:00] VITALS: BP 120/70; BMI 33.8
--- NOTE | 2024-01-07 11:00 | MHC.OFFVIS ---
Vital Signs 01/07/24 11:00 Height 6 ft Weight 249 lb 1.957 oz BMI 33.8 BP 120/70 Blood Pressure Location Lt brachial Position Sitting Intake Visit Reasons: Shortness of breath Intake Note: pt is here for follow up and states he is able to turn down to O2 while sitting and maintains O2 in the 90's. When exerting he is on 2.5 liters. pt sees glass tinter every year but does not need phlebotomy due to iron levels being good. 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 He has been using oxygen continuously and his breathing has definitely improved. When at home and resting he is able to cut down his O2 to 1.5 L/minute and O2 sat usually stays above 90%. When he goes outdoors or works out in the yd his O2 sat stent to decrease, and he has to keep oxygen at 3 L/minute. He has no cough or wheezing. And has very little shortness of breath on exertion. For his hemochromatosis, he told me that he does see his glass tinter Dr. Guerrero once a year, but has had no phlebotomy in the last 3 years. He has history of pulmonary embolism detected on CTA in 2021 and remains on anticoagulation therapy with Eliquis 5 mg b.i.d.. He was started on Spiriva Respimat but did not tolerated because it caused more cough. So at this time he has not using any pulmonary meds. He has very little cough or wheezing. Once again we discussed about the findings of CT scan of the chest on 10/26/2023 He does have chronic pulmonary emphysema and interstitial lung disease without any honeycombing. The appearance is stable when compared to CT scan of 2021 He does have pulmonary nodules the largest being 6 mm in the left apex, which needs to be monitored closely. [facility] Medical History (Updated 01/07/24 @ 12:15 by Catrachito Manzo MD) Pulmonary embolism Pulmonary nodules Respiratory failure with hypoxia Polycythemia secondary to hypoxia Pulmonary fibrosis Social History Patient Tobacco Use Status: Former Tobacco user Review of Systems Const All systems reviewed & are unremarkable except as noted in HPI and below Eyes Reports no additional complaints ENT Reports no additional complaints Card Denies chest pain, Denies leg edema and Reports dyspnea on exertion Resp Reports as per HPI and Reports dyspnea on exertion GI Reports heartburn (Treated with med) Reports no additional complaints Musc Reports no additional complaints Skin/Breast Reports system reviewed and no additional complaints, except as documented Neuro Reports no additional complaints Psych Reports no additional complaints Endo Reports no additional complaints Aller/Immun Reports no additional complaints Physical Exam Vital Signs: Last Vital Signs BP 120/70 01/07/24 11:00 BMI result Body Mass Index 33.8 Const Other: reddish skin General: healthy appearing, comfortable, no acute distress, alert and awake Orientation/consciousness: patient oriented x3 HEENT Head: Yes normal to inspection General nose exam: No nasal polyps present and No nasal discharge present Face and sinus: Yes sinuses nontender Mouth: oropharynx normal Throat: Yes posterior oropharynx normal Eyes General: appearance normal, both eyes and all related structures Neck Neck: Yes normal visual inspection, Yes no lymphadenopathy, Yes trachea midline and Yes no JVD Thyroid: Thyroid normal Chest Chest palpation & inspection: normal inspection of the chest, normal palpation of entire chest wall and no tenderness Resp Other: Percussion. note resonant Breath sounds are equal on both sides. The breath sounds are slightly distant with prolonged expiratory phase. Inspiratory crackles heard over both lower lobes Cardio Palpation: normal PMI Rate: regular rate Rhythm: abnormal rhythm (atrial fib .) Heart sounds: no gallops and no murmurs Peripheral pulses: Peripheral pulses 2+ throughout GI Palpation (GI): Soft to palpation, nontender, No hepatosplenomegaly present and no masses Auscultation: normal bowel sounds Back/Spine/Pelvis Thoracic/Lumbar Spine: thoracic and lumbar spine normal to inspection Skin General skin exam: no rashes or lesions noted Neuro General: patient oriented x3 and no focal motor deficits Cranial nerves: Yes CN's II-XII intact bilaterally Extrem General: Yes normal to inspection, Yes no clubbing, cyanosis or edema and Yes no calf tenderness Psych Appearance: grossly normal and well kempt Speech and movement: Normal speech and movement present Results Reviewed Results Reviewed: CT scan of the chest findings as described above in HPI Assessment & Plan Assessment & Plan (1) Pulmonary fibrosis: Comment: I THINK THIS GENTLEMAN HAS HAD PULMONARY FIBROSIS FOR THE PAST FEW YEARS, THIS MAY BE THE MAIN CAUSE OF HIS HYPOXEMIA. SEEMS TO BE STABLE AT THIS TIME. CT SCAN OF THE CHEST IN OCTOBER OF THIS YEAR SHOWED NO PROGRESSION SINCE 2021. Code(s): J84.10 - Pulmonary fibrosis, unspecified Category: Medical Plan: CONTINUE USE OF OXYGEN. (2) Polycythemia secondary to hypoxia: Comment: PATIENT HAS HISTORY OF WHAT HE DESCRIBES HEMOCHROMATOSIS FOR THE PAST MANY YEARS. RETROSPECTIVELY I THINK HE HAS HAD CHRONIC HYPOXEMIA CAUSING POLYCYTHEMIA. HE HAS BEEN TREATED IN THE PAST WITH PHLEBOTOMIES BUT NOW HAS NOT REQUIRED FOR THE LAST 3 YEARS. 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 O2 SAT AT REST 87-89%. 6 MINUTES WALK, SHOWED QUICK DECOMPENSATION. HE DEFINITELY FEELS BETTER SINCE HE IS USING OXYGEN. Code(s): J96.91 - Respiratory failure, unspecified with hypoxia Category: Medical Plan: USE O2 3 L/MINUTE WITH THE PORTABLE UNIT WHEN OUTDOORS AT HOME MAY CUT IT DOWN TO 2 OR EVEN 1.5 L/MINUTE LONG O2 SAT IS ABOVE 90% (4) Pulmonary nodules: Comment: A NEW 6 MM PULMONARY NODULE IN RIGHT APEX . WHICH NEEDS TO BE FOLLOWED UP I THINK WE SHOULD REPEAT CT SCAN IN 6 MONTHS FROM NOW. Code(s): R91.8 - Other nonspecific abnormal finding of lung field Category: Medical Plan: A REPEAT CT SCAN OF THE CHEST IS ORDERED TO BE PERFORMED IN 2023 (5) Pulmonary embolism: Comment: PATIENT HAS HISTORY OF PULMONARY EMBOLISMS SINCE 2021 AND IT IS BEING TREATED WITH ANTICOAGULATION. Code(s): I26.99 - Other pulmonary embolism without acute cor pulmonale Category: Medical Plan: CONTINUE ELIQUIS 5 MG B.I.D. Orders: Orders CT chest wo IV con 4 Months R91.8 - Other nonspecific abnormal finding of lung field Coding Level of Care Code Est Pt Level 3 (77496) Diagnoses Pulmonary fibrosis J84.10 Polycythemia secondary to hypoxia D75.1 Respiratory failure with hypoxia J96.91 Pulmonary nodules R91.8 Pulmonary embolism I26.99
== END 2024-01-07 11:27 | disposition home or self-care (01) ==
PROVIDERS: PCP Internal Medicine; Visit Provider Internal Medicine
DX: J84.10 Pulmonary fibrosis, unspecified (principal); D75.1 Secondary polycythemia; J96.91 Respiratory failure, unspecified with hypoxia; R91.8 Other nonspecific abnormal finding of lung field; I26.99 Other pulmonary embolism without acute cor pulmonale
CPT/HCPCS: 99213

== ENCOUNTER → 2024-01-07 10:51 | Outpatient (BNVA) | payer MEDICARE, SELFPAY | PROVIDERS: PCP Internal Medicine; Visit Provider Internal Medicine | DX: J96.91 Respiratory failure, unspecified with hypoxia (principal); J84.10 Pulmonary fibrosis, unspecified; D75.1 Secondary polycythemia; R91.8 Other nonspecific abnormal finding of lung field; I26.99 Other pulmonary embolism without acute cor pulmonale | CPT/HCPCS: 99212 ==

== ENCOUNTER 2024-04-26 10:43 | Outpatient (AMB) | payer MEDICARE, SELFPAY ==
--- NOTE | 2024-04-26 10:53 | MHC.OFFVIS ---
Vital Signs 04/26/24 10:54 Height 6 ft BP 120/68 Blood Pressure Location Lt brachial Position Sitting Pulse 97 Pulse Source Pulse Oximeter Pulse Oximetry (%) 93 Oxygen Delivery Method Nasal Cannula Oxygen Flow Rate 8 Intake Visit Reasons: f/[facility] Intake Note: pt is here for follow up from [facility], he is now 8 liters mostly with exertion, sleeping 3.5 or 4 liters, watching TV 3.[address] dizzy on 8 liters. 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 HE IS A KNOWN CASE OF CHRONIC INTERSTITIAL LUNG DISEASE/ RESTRICTIVE PULMONARY DISORDER/HYPOXEMIA. HE HAS ONLY MILD DEGREE OF OBSTRUCTIVE AIRWAY DISORDER. HE WAS USING SPIRIVA RESPIMAT BUT CLAIMS THAT IT CAUSED COUGH SO HE HAD STOPPED USING. HE WAS TAKEN TO THE EMERGENCY ROOM AT [facility] ON 04/20/24 ( JUST A WEEK AGO) BECAUSE OF SYNCOPAL EPISODES, WHICH HAD BEEN RECURRING. HE DID NOT COMPLAIN OF ANY ACTIVE, PULMONARY ISSUE EXCEPT FOR THE FACT THAT HIS O2 REQUIREMENT HAD INCREASED ON ANY MINIMAL EXERTION. PATIENT DENIES HAVING HAD ANY RECENT RESPIRATORY INFECTION. SINCE DISCHARGE HOME HE STILL CONTINUES TO HAVE FREQUENT BOUTS OF NEAR SYNCOPAL EPISODE. THESE EPISODES ARE NOT RELATED WITH ANY RESPIRATORY DISTRESS. HE IS SCHEDULED TO UNDERGO CT SCAN OF THE CHEST IN THE NEXT 2-3 WEEKS. [facility] Medical History Pulmonary embolism Pulmonary nodules Respiratory failure with hypoxia Polycythemia secondary to hypoxia Pulmonary fibrosis Social History Patient Tobacco Use Status: Former Tobacco user Review of Systems Const All systems reviewed & are unremarkable except as noted in HPI and below Eyes Reports no additional complaints ENT Reports no additional complaints Card Denies chest pain, Reports syncope (FREQUENT PRESYNCOPAL EPISODES), Denies leg edema and Reports dyspnea on exertion Resp Reports as per HPI and Reports dyspnea on exertion GI Reports heartburn (Treated with med) Reports no additional complaints Musc Reports no additional complaints Skin/Breast Reports system reviewed and no additional complaints, except as documented Neuro Reports syncope (FREQUENT PRESYNCOPAL EPISODES) Psych Reports no additional complaints Endo Reports no additional complaints Aller/Immun Reports no additional complaints Physical Exam Vital Signs: Last Vital Signs Pulse 97 04/26/24 10:54 BP 120/68 04/26/24 10:54 Pulse Ox 30 L 04/26/24 10:54 Oxygen Delivery Method Nasal Cannula 04/26/24 10:54 Oxygen Flow Rate 8 04/26/24 10:54 Results Reviewed Results Reviewed: THE REPORT OF HIS HOSPITALIZATION AT [facility] FOR AN OVERNIGHT OBSERVATION ON 04/20/2024, IS REVIEWED Assessment & Plan Assessment & Plan (1) Pulmonary fibrosis: Comment: I THINK THIS GENTLEMAN HAS HAD PULMONARY FIBROSIS FOR THE PAST FEW YEARS, THIS MAY BE THE MAIN CAUSE OF HIS HYPOXEMIA. CT SCAN OF THE CHEST IN OCTOBER OF THIS YEAR SHOWED NO PROGRESSION SINCE 2021. Code(s): J84.10 - Pulmonary fibrosis, unspecified Category: Medical Plan: HIS MAIN ISSUE IS HYPOXEMIA WHICH IS BEING TREATED WITH OXYGEN SUPPLEMENTATION (2) Respiratory failure with hypoxia: Comment: PATIENT HAS RESTING WELL EXERCISE INDUCED HYPOXEMIA. O2 SAT AT REST 87-89%. 6 MINUTES WALK, SHOWED QUICK DECOMPENSATION. HE DEFINITELY FEELS BETTER SINCE HE IS USING OXYGEN. HIS O2 SATURATION AT REST IS CONTROLLED WITH O2 3 L/MINUTE. WITH ANY PHYSICAL ACTIVITY HE DESATURATES QUICKLY, AND HE HAS TO INCREASE THE O2 FLOW TO 6-8 L/MINUTE. THE QUESTION IS IF THIS IS THE CAUSE OF HIS PRESYNCOPAL EPISODES. HOWEVER ACCORDING TO HIS AND THE PATIENT , HE GETS THESE EPISODES EVEN AT REST AT HOME WHEN HIS O2 SATS ARE IN NORMAL RANGE. Code(s): J96.91 - Respiratory failure, unspecified with hypoxia Category: Medical Plan: CONTINUE O2 3 L/MINUTE AT REST. MAY INCREASE O2 TO 6-8 L/MINUTE WHEN GOING OUTDOORS OR DOING ANY PHYSICAL EXERTION, THE GOAL IS TO KEEP O2 SAT ABOVE 90%. (3) Pulmonary nodules: Comment: A NEW 6 MM PULMONARY NODULE IN RIGHT APEX . WHICH NEEDS TO BE FOLLOWED UP I THINK WE SHOULD REPEAT CT SCAN IN 6 MONTHS FROM NOW. Code(s): R91.8 - Other nonspecific abnormal finding of lung field Category: Medical Plan: CT SCAN OF THE CHEST SCHEDULED IN 2 WEEKS (4) Pulmonary embolism: Comment: PATIENT HAS HISTORY OF PULMONARY EMBOLISMS SINCE 2021 AND IT IS BEING TREATED WITH ANTICOAGULATION. Code(s): I26.99 - Other pulmonary embolism without acute cor pulmonale Category: Medical Plan: CONTINUE ELIQUIS 5 MG B.I.D. Coding Level of Care Code Est Pt Level 4 (51264) Diagnoses Pulmonary fibrosis J84.10 Respiratory failure with hypoxia J96.91 Pulmonary nodules R91.8 Pulmonary embolism I26.99
[2024-04-26 10:54] VITALS: BP 120/68; PULSE 97; O2SAT 93
== END 2024-04-26 11:23 | disposition home or self-care (01) ==
PROVIDERS: PCP Internal Medicine; Visit Provider Internal Medicine
DX: J84.10 Pulmonary fibrosis, unspecified (principal); J96.91 Respiratory failure, unspecified with hypoxia; R91.8 Other nonspecific abnormal finding of lung field; I26.99 Other pulmonary embolism without acute cor pulmonale
CPT/HCPCS: 99214

== ENCOUNTER → 2024-04-26 10:43 | Outpatient (BNVA) | payer MEDICARE, SELFPAY | PROVIDERS: PCP Internal Medicine; Visit Provider Internal Medicine | DX: J84.10 Pulmonary fibrosis, unspecified (principal); J96.91 Respiratory failure, unspecified with hypoxia; J91.8 Pleural effusion in other conditions classified elsewhere; I26.99 Other pulmonary embolism without acute cor pulmonale | CPT/HCPCS: 99212 ==

== ENCOUNTER 2024-05-09 09:59 | Outpatient (REF) | payer MEDICARE, SELFPAY ==
--- NOTE | ~2024-05-09 | CT_ITS ---
EXAMINATION: CT CHEST WITHOUT CONTRAST CLINICAL INFORMATION: Follow up lung nodule COMPARISON: October 26, 2023 TECHNIQUE: Multidetector volumetric CT imaging of the chest was done. Axial MIP volume rendering provided. Sagittal and coronal reformatted images were obtained. This CT examination was performed using dose optimization techniques as appropriate, variously including the following: *Automated exposure control *Adjustment of mA and/or kV according to patient size (this includes techniques or standardized protocols for targeted exams where dose is matched to indication/reason for exam; i.e. extremities or head) *Use of iterative reconstruction technique DLP: 544 mGy-cm FINDINGS: BILL SORTER: Unremarkable LUNGS: There is stable oval-shaped nodule seen on image 325 series 4 and measured 0.5 cm, in the right middle lobe. There is stable 0.8 cm nodule in the apical segment of the left upper lobe, seen on image 118 series 4. There is stable left upper lobe 0.5 cm nodule seen on image 312 series 4 . Smaller sized scattered nodules present again. There are no new nodules. There are mild changes of emphysema and interstitial prominence. MEDIASTINUM: Thyroid gland is unremarkable. There is no mediastinal or hilar lymphadenopathy seen. CORONARY ARTERY CALCIFICATION: Heavy coronary artery calcifications present. PLEURA: There is no pleural effusion. No pleural mass or thickening. AXILLA: No lymphadenopathy. UPPER ABDOMEN: There is small exophytic simple cyst seen in the upper pole of right kidney, measured 3.1 cm. OSSEOUS STRUCTURES: Unremarkable. CT/CT chest wo IV con IMPRESSION: Stable lung nodules as described. Coronary artery calcifications. Emphysema and interstitial lung disease. Fleischner guidelines were followed. Electronically signed by: Oriana Pino MD 06/08/2024 04:42 PM EDT
== END 2024-05-09 10:00 | disposition home or self-care (01) ==
LOC: HO.CT 09:59
PROVIDERS: PCP Internal Medicine; Visit Provider Internal Medicine
DX: R91.8 Other nonspecific abnormal finding of lung field (principal)
CPT/HCPCS: 71250

== ENCOUNTER 2024-06-01 10:20 | Outpatient (AMB) | payer MEDICARE, SELFPAY ==
--- NOTE | 2024-06-01 10:27 | A.OFFVIS_ITS ---
Vital Signs 06/01/24 10:29 Height 6 ft Weight 240 lb BMI 32.5 BP 105/75 Blood Pressure Location Lt brachial Position Sitting Pulse 73 Pulse Source Pulse Oximeter Pulse Oximetry (%) 94 Oxygen Delivery Method Nasal Cannula Oxygen Flow Rate 4 Intake Visit Reasons: COPD Nursing Education Specialist Required: No Allergies No Known Allergies Allergy (Verified 06/01/24 16:59) Medication List - Last Reconciled 06/01/24 by Catrachito Manzo MD apixaban (Eliquis) 5 mg PO BID atenolol 12.5 mg PO DAILY atorvastatin 10 mg PO BEDTIME [id number]-[id number]-[id number]-vdb-[id number] 500 mcg- 750 mg (Nicotinamide (with chromium)) 2 tabs PO DAILY Do you need a note to return to daycare/school/sports/work: No HPI HPI COPD: Details: This 79 years old gentleman is here today, for follow-up after his recent admission to [facility]. He was admitted after a syncopal attack, increased shortness of breath, elevated troponin level. Workup for acute coronary syndrome was negative. He did have hypoxemia due to interstitial lung disease. He was advised to come for pulmonary follow-up at an earlier date then is scheduled appointment. He has the periodic syncopal episodes and also has poor balance, so he is staying in the wheelchair, at home and also when he goes outdoors. He is on oxygen continuously , mostly at 2 L/minute but when he is using the portable cylinder and goes outdoors sometime he needs to increase the flow to 3- 4 L/minute. He does not have any recent history of chest infection. Also denies any chest pain. He does have past history of significant sinus arrhythmia on his EKGs, he is being followed by cardiology service and they do not think that his pre syncopal attacks are due to cardiac issue. Blood pressure tends to be low so his dose of atenolol has been decreased to 12.5 mg a day. He has history of pulmonary embolism since 2021 and is on Eliquis 5 5 mg b.i.d. He is not on any bronchodilator inhalers inhaled steroids. REPLACED BY [facility] Medical History Pulmonary embolism Pulmonary nodules Respiratory failure with hypoxia Polycythemia secondary to hypoxia Pulmonary fibrosis Social History Patient Tobacco Use Status: Former Tobacco user Review of Systems Const All systems reviewed & are unremarkable except as noted in HPI and below Eyes Reports no additional complaints ENT Reports no additional complaints Card Denies chest pain, Reports syncope (FREQUENT PRESYNCOPAL EPISODES), Denies leg edema and Reports dyspnea on exertion Resp Reports as per HPI and Reports dyspnea on exertion GI Reports heartburn (Treated with med) Reports no additional complaints Musc Reports no additional complaints Skin/Breast Reports system reviewed and no additional complaints, except as documented Neuro Reports syncope (FREQUENT PRESYNCOPAL EPISODES) Psych Reports no additional complaints Endo Reports no additional complaints Aller/Immun Reports no additional complaints Physical Exam Vital Signs: Last Vital Signs Pulse 73 06/01/24 10: BP 105/75 06/01/24 10:29 Pulse Ox 94 06/01/24 10:29 Oxygen Delivery Method Nasal Cannula 06/01/24 10:29 Oxygen Flow Rate 4 06/01/24 10:29 BMI result Body Mass Index 32.5 Const Other: reddish skin General: healthy appearing, comfortable, no acute distress, alert and awake Orientation/consciousness: patient oriented x3 HEENT Head: Yes normal to inspection General nose exam: No nasal polyps present and No nasal discharge present Face and sinus: Yes sinuses nontender Mouth: oropharynx normal Throat: Yes posterior oropharynx normal Eyes General: appearance normal, both eyes and all related structures Neck Neck: Yes normal visual inspection, Yes no lymphadenopathy, Yes trachea midline and Yes no JVD Thyroid: Thyroid normal Chest Chest palpation & inspection: normal inspection of the chest, normal palpation of entire chest wall and no tenderness Resp Other: Percussion. note resonant Breath sounds are equal on both sides. The breath sounds are slightly distant with prolonged expiratory phase. Inspiratory crackles heard over both lower lobes Cardio Palpation: normal PMI Rate: regular rate Rhythm: abnormal rhythm (atrial fib .) Heart sounds: no gallops and no murmurs Peripheral pulses: Peripheral pulses 2+ throughout GI Palpation (GI): Soft to palpation, nontender, No hepatosplenomegaly present and no masses Auscultation: normal bowel sounds Back/Spine/Pelvis Thoracic/Lumbar Spine: thoracic and lumbar spine normal to inspection Skin General skin exam: no rashes or lesions noted Neuro General: patient oriented x3 and no focal motor deficits Cranial nerves: Yes CN's II-XII intact bilaterally Extrem General: Yes normal to inspection, Yes no clubbing, cyanosis or edema and Yes no calf tenderness Psych Appearance: grossly normal and well kempt Speech and movement: Normal speech and movement present Office Procedures Flu Questionnaire Does the patient have a severe egg allergy?: No Does the patient have severe life threatening allergies?: No Does the patient have a fever or illness today?: No Has the patient ever had Guillain-[place] Syndrome?: No Has the patient ever had any past reaction to a flu shot?: No Results Reviewed Results Reviewed: Course of his hospitalization at [facility] was reviewed Pulmonary function test on 09/25/2023: Moderately severe restrictive pulmonary d isorder, and no obstructive airway disorder. CTA of chest on 07/03/2022, bilateral multi segmental pulmonary embolism. CT scan of the chest on 05/09 , here at [facility] , official report is pending. I reviewed the image and he does have moderately severe interstitial lung disease on both sides. Assessment & Plan Assessment & Plan (1) Pulmonary fibrosis: Comment: I THINK THIS GENTLEMAN HAS HAD PULMONARY FIBROSIS FOR THE PAST FEW YEARS, THIS MAY BE THE MAIN CAUSE OF HIS HYPOXEMIA. Code(s): J84.10 - Pulmonary fibrosis, unspecified Category: Medical Plan: Treatment will be mainly for hypoxemia. He does not need antifibrotic agents. (2) Polycythemia secondary to hypoxia: Comment: PATIENT HAS HISTORY OF WHAT HE DESCRIBES HEMOCHROMATOSIS FOR THE PAST MANY YEARS. RETROSPECTIVELY I THINK HE HAS HAD CHRONIC HYPOXEMIA CONTRIBUTING TO POLYCYTHEMIA. HE HAS BEEN TREATED IN THE PAST WITH PHLEBOTOMIES BUT NOW HAS NOT REQUIRED FOR THE LAST 3 YEARS. Code(s): D75.1 - Secondary polycythemia Category: Medical Plan: WILL CONTINUE TO MONITOR HIS HEMOGLOBIN HEMATOCRIT. HOPEFULLY WITH THE USE OF OXYGEN SUPPLEMENTATION HIS POLYCYTHEMIA WILL REMAIN UNDER CONTROL. (3) Respiratory failure with hypoxia: Comment: PATIENT HAS RESTING WELL EXERCISE INDUCED HYPOXEMIA. O2 SAT AT REST 87-89%. 6 MINUTES WALK, SHOWED QUICK DECOMPENSATION. HE DEFINITELY FEELS BETTER SINCE HE IS USING OXYGEN. HIS O2 SATURATION AT REST IS CONTROLLED WITH O2 3 L/MINUTE. WITH ANY PHYSICAL ACTIVITY HE DESATURATES QUICKLY, AND HE HAS TO INCREASE THE O2 FLOW TO 6-8 L/MINUTE. Code(s): J96.91 - Respiratory failure, unspecified with hypoxia Category: Medical Plan: CONTINUE USING OXYGEN 3 L/MINUTE AT REST. 1 GOING OUTDOORS AND ON PORTABLE UNIT MAY INCREASE TO 4-6 /MT GOAL IS TO KEEP O2 SAT ABOVE 90% L (4) Pulmonary embolism: Comment: PATIENT HAS HISTORY OF PULMONARY EMBOLISMS SINCE 2021 AND IT IS BEING TREATED WITH ANTICOAGULATION. Code(s): I26.99 - Other pulmonary embolism without acute cor pulmonale Category: Medical Plan: CONTINUE ELIQUIS 5 MG B.I.D. I AM REQUESTING FOR ECHOCARDIOGRAM TO CHECK FOR POSSIBLE PULMONARY HYPERTENSION. Orders: Orders Influenza [id number] Immunization 06/01/24 Z23 - Encounter for immunization CA echo transthoracic complete 06/01/24 D75.1 - Secondary polycythemia, I26.99 - Other pulmonary embolism without acute cor pulmonale, J84.10 - Pulmonary fibrosis, unspecified, J96.91 - Respiratory failure, unspecified with hypoxia Coding Level of Care Code Est Pt Level 4 (82052) Diagnoses Pulmonary fibrosis J84.10 Polycythemia secondary to hypoxia D75.1 Respiratory failure with hypoxia J96.91 Pulmonary embolism I26.99
[2024-06-01 10:29] VITALS: BP 105/75; PULSE 73; O2SAT 94; BMI 32.5
== END 2024-06-01 10:57 | disposition home or self-care (01) ==
PROVIDERS: PCP Internal Medicine; Visit Provider Internal Medicine
DX: J84.10 Pulmonary fibrosis, unspecified (principal); D75.1 Secondary polycythemia; J96.91 Respiratory failure, unspecified with hypoxia; I26.99 Other pulmonary embolism without acute cor pulmonale
CPT/HCPCS: 99214

== ENCOUNTER → 2024-06-01 10:20 | Outpatient (BNVA) | payer MEDICARE, SELFPAY | PROVIDERS: PCP Internal Medicine; Visit Provider Internal Medicine | DX: J96.91 Respiratory failure, unspecified with hypoxia (principal); J84.10 Pulmonary fibrosis, unspecified; D75.1 Secondary polycythemia; R91.8 Other nonspecific abnormal finding of lung field; I26.99 Other pulmonary embolism without acute cor pulmonale; Z99.81 Dependence on supplemental oxygen; Z23 Encounter for immunization | CPT/HCPCS: 90471; 90656; 99212 ==

== ENCOUNTER → 2024-07-27 12:55 | Outpatient (REF) | payer MEDICARE, SELFPAY ==
--- NOTE | 2024-07-27 13:00 | CA_ITS ---
Transthoracic Echocardiogram Patient (Last, First, Middle): Akil Morales F Gender: Male Date of : 1945 Age: 79 Procedure Date: 07/27/2024 Procedure Type: Transthoracic Echocardiogram Location: OP Height: 185.42 cm Weight: 108.86 kg BSA: 2.33 m2 Heart Rate: bpm BP: 124 / 60 mmHg Twisting Press Operator: Referring MD: Catrachito Manzo MD Women'S Studies Professor: Jessee eDan MD Symptoms: I26.99 - Other pulmonary embolism without acute cor pulmonale Study Quality: Fair ECG Rhythm: Sinus Conclusions: - 1. Severely enlarged right ventricle with reduced systolic function 2. Low normal LV ejection fraction with moderate LVH with grade 1 diastolic dysfunction 3. Severely elevated right ventricular systolic pressure and mildly elevated right atrial pressures 4. Hjbw-fd-ghyzyalz tricuspid and mitral regurgitation 5. Upper limits of normal ascending aortic size 6. No gross pericardial effusion Findings Left Ventricle Normal left ventricular cavity size. There is moderately increased left ventricular wall thickness. The left ventricular systolic function is low normal. The visually estimated ejection fraction is between 50-55%. There is a flattened septum in systole consistent with right ventricular pressure overload. Spectral Doppler is indicative of an impaired relaxation filling pattern. E/E prime ratio is <8, consistent with normal filling pressures. Evidence suggests grade I (mild) diastolic dysfunction. Right Ventricle Severely increased right ventricular cavity size. RV systolic function appears to be reduced although TAPSE is within normal limits, this may be erroneous measurement of overall RV systolic function Atria The left atrium is normal in size. There is no evidence of interatrial shunt. The right atrium is severely dilated. Aortic Valve Normal aortic valve structure and function. There is no aortic valve stenosis. There is no aortic valve regurgitation. Mitral Valve Normal mitral valve structure and function. There is mild to moderate mitral valve regurgitation. There is no mitral valve stenosis. Pulmonic Valve The pulmonic valve is likely normal. Tricuspid Valve Normal tricuspid valve structure. There is mild to moderate tricuspid valve regurgitation. Mildly elevated right atrial pressure. Severe pulmonary hypertension is present. Great Vessels The pulmonary artery was not well visualized. There is no evidence of plaque in the aorta. Venous The inferior vena cava is mildly dilated and collapses less than 50% with inspiration. Pericardium/Pleural There is no evidence of pericardial effusion. Prior Study Comparison No prior study available for comparison. Measurements 2D Linear Measurements IVSd: 1.53 0.6-0.9/0.6-1.0 cm LVIDd: 4.61 3.9-5.3/4.2-5.9 cm LVIDd Index: 1.98 2.4-3.2/2.2-3.1 cm/m2 LVIDs: 3.14 2.0-3.6 cm LVPWd: 1.48 0.7-1.1 cm Ao Root: 2.90 2.1-3.5 cm LA Diam: 4.10 2.7-3.8/3.0-4.0 cm LAIDs Index: 1.76 1.5-2.3 cm/m2 LV Mass: 358.26 67-162/88-224 g LV Mass Index: 153.76 43-95/49-115 g/m2 LVOT Diam: 2.30 3.0+(-)1.3 cm Mitral Valve MV Pk E: 0.32 MV PK A: 0.74 MV Decel Time: 165.00 E/A: 0.40 E'Lateral: 4.13 E'Medial: 2.83 E/E' Med: 11.20 E/E' Lat: 7.70 PHT: 48.00 MVA PHT: 4.58 Decel [place]: 1.93 Aortic Valve AoV Pk Chet: 1.03 AoV Mn Chet: 0.70 AoV VTI: 0.19 AoV Pk Grad: 4.00 Aov Mn Grad: 2.00 LIBBY Cont.VTI: 3.04 LVOT LVOT Pk Chet: 0.67 LVOT Mn Chet: 0.41 LVOT VTI: 0.14 LVOT Pk Grad: 2.00 LVOT Mn Grad: 1.00 LVOT Diam: 2.30 LVOT Area: 4.15 Diastolic Function MV Pk E: 0.32 MV Pk A: 0.74 E/A: 0.40 E'Medial: 2.83 E/E' Med: 11.20 E' Laterial: 4.13 E/E' Lat: 7.70 Right Ventricle TAPSE (mm): 19.00 Tricuspid Valve TR Pk Chet: 4.50 TR Pk Grad: 81.00 RA Press: 8.00 RVSP: 89.00 Great Vessels Aorta Ao Root-2D: 2.90 2.0-3.7 cm Ao Asc: 3.50 2.1-3.4 cm Pulmonary Valve PV Pk Chet: 0.77 Peak PV Grad: 2.00 Updated in Other Vendor System with Status of Final Jessee Dean MD electronically signed on 07/27/2024 3:24:22 PM with status of Final
== END ==
LOC: HO.CARD 12:55
PROVIDERS: PCP Internal Medicine; Visit Provider Internal Medicine
DX: I26.99 Other pulmonary embolism without acute cor pulmonale (principal); J96.91 Respiratory failure, unspecified with hypoxia; D75.1 Secondary polycythemia; J84.10 Pulmonary fibrosis, unspecified
CPT/HCPCS: 93306

== ENCOUNTER → 2024-07-27 13:00 | Outpatient (BNV) | payer MEDICARE, SELFPAY | PROVIDERS: PCP Internal Medicine; Visit Provider Internal Medicine Cardiovascular Disease | DX: I34.0 Nonrheumatic mitral (valve) insufficiency (principal); I36.1 Nonrheumatic tricuspid (valve) insufficiency; I27.20 Pulmonary hypertension, unspecified; I26.99 Other pulmonary embolism without acute cor pulmonale | CPT/HCPCS: 93306 ==

== ENCOUNTER 2024-08-01 10:40 | Outpatient (AMB) | payer MEDICARE, SELFPAY ==
[2024-08-01 10:52] VITALS: BP 102/52; PULSE 64; O2SAT 92
--- NOTE | 2024-08-01 10:52 | A.OFFVIS_ITS ---
Vital Signs 08/01/24 10:52 Height 6 ft BP 102/52 L Blood Pressure Location Lt brachial Position Sitting Pulse 64 Pulse Source Pulse Oximeter Pulse Oximetry (%) 92 Oxygen Delivery Method Nasal Cannula Oxygen Flow Rate 4 Intake Visit Reasons: COPD Intake Note: pt is here for follow up and states he has been having syncope episodes, what do you think, oxygen at home is 5 liters when moving, and siting is about 3.5 to 4. pt had echo. Oil Separator Required: No Allergies No Known Allergies Allergy (Verified 08/01/24 16:29) Medication List - Last Reconciled 08/01/24 by Catrachito Manzo MD apixaban (Eliquis) 5 mg PO BID atenolol 12.5 mg PO DAILY atorvastatin 10 mg PO BEDTIME [id number] 500 mcg- 750 mg (Nicotinamide (with chromium)) 2 tabs PO DAILY Do you need a note to return to daycare/school/sports/work: No HPI HPI COPD: Details: HPI Back ground history . THIS 78 YEARS OLD GENTLEMAN, comes for pulmonary evaluation and management, after 4 years . Of his initial visit He was seen by me in August 2019, for shortness of breath on exertion, without any history of wheezing excessive cough. He smoked for about 30 years 1 pack a day but was able to quit in 1993. He quit smoking after he saw his father of lung disease When I saw him in 2019, I told him that he had a mild pulmonary fibrosis, he definitely had exertional hypoxemia, and we were going to consider starting him on oxygen. He needed further evaluation but, he never came back. Retrospectively I can understand that he was just afraid to be put on oxygen. He has not been treated with for any chronic obstructive pulmonary disease, He say is that last time he had pulmonary function test he almost passed out so he has had no repeat tests. He has history of longstanding hemochromatosis, he sees Dr. Mcnamara at [facility], has had periodic phlebotomies, but not in the last 3 years. He is having gradually increasing amount of shortness of breath on exertion. A few months ago when he was working in the backyard he almost passed out and felt very weak. He denies any chest pain as had had cardiac workup . He is being treated for atrial fibrillation and is on anticoagulation. He is scheduled to have, cardioversion next week. In May 2024 he was admitted at [facility] of a syncopal attack and increased shortness of breath. His cardiac workup was negative for acute coronary syndrome. He did have significant hypoxemia which was considered to be due to interstitial lung disease, treated with the O2 24 hours a day. X-ray chest did indicated that he has chronic pulmonary interstitial lung disease. He has undergone repeat CT scan of the chest to which shows multiple pulmonary nodularities but no change since 2021, and there is the finding of interstitial lung disease as well as pulmonary emphysema. Echocardiogram performed here at [facility] shows that he has significantly high E right ventricular systolic pressure ( 89 mm Hg ) with the dilated right ventricle and right atrium. He also has tricuspid regurgitation as well as mild mitral regurgitation. Patient has had recent fall from the bed due to loss of balance, he has contusion of the right side of the face and a small hematoma on the right frontal area. Currently he is using oxygen 3.5 L/minute at rest and increases to 4-5 L/minute when he is moving around. He is remaining mostly in the wheelchair and at home tries to walk short distance with a walker. [facility] Medical History (Updated 08/01/24 @ 16:41 by Catrachito Manzo MD) Pulmonary hypertension Pulmonary embolism Pulmonary nodules Respiratory failure with hypoxia Polycythemia secondary to hypoxia Pulmonary fibrosis Social History Patient Tobacco Use Status: Former Tobacco user Review of Systems Const All systems reviewed & are unremarkable except as noted in HPI and below Eyes Reports no additional complaints ENT Reports no additional complaints Card Denies chest pain, Reports syncope (FREQUENT PRESYNCOPAL EPISODES), Denies leg edema and Reports dyspnea on exertion Resp Reports as per HPI and Reports dyspnea on exertion GI Reports heartburn (Treated with med) Reports no additional complaints Musc Reports no additional complaints Skin/Breast Reports system reviewed and no additional complaints, except as documented Neuro Reports syncope (FREQUENT PRESYNCOPAL EPISODES) Psych Reports no additional complaints Endo Reports no additional complaints Aller/Immun Reports no additional complaints Physical Exam Vital Signs: Last Vital Signs Pulse 64 08/01/24 10:52 BP 102/52 L 08/01/24 10:52 Pulse Ox 92 08/01/24 10:52 Oxygen Delivery Method Nasal Cannula 08/01/24 10:52 Oxygen Flow Rate 4 08/01/24 10:52 Const Other: reddish skin General: healthy appearing, comfortable, no acute distress, alert and awake Orientation/consciousness: patient oriented x3 HEENT Head: Yes normal to inspection and Yes other (Bromide sized hematoma on the right side of the forehead.) General nose exam: No nasal polyps present and No nasal discharge present Face and sinus: Yes sinuses nontender Mouth: oropharynx normal Throat: Yes posterior oropharynx normal Eyes General: appearance normal, both eyes and all related structures Neck Neck: Yes normal visual inspection, Yes no lymphadenopathy, Yes trachea midline and Yes no JVD Thyroid: Thyroid normal Chest Chest palpation & inspection: normal inspection of the chest, normal palpation of entire chest wall and no tenderness Resp Other: Percussion. note resonant Breath sounds are equal on both sides. The breath sounds are slightly distant with prolonged expiratory phase. Inspiratory crackles heard over both lower lobes Cardio Palpation: normal PMI Rate: regular rate Rhythm: abnormal rhythm (atrial fib .) Heart sounds: no gallops and no murmurs Peripheral pulses: Peripheral pulses 2+ throughout GI Palpation (GI): Soft to palpation, nontender, No hepatosplenomegaly present and no masses Auscultation: normal bowel sounds Back/Spine/Pelvis Thoracic/Lumbar Spine: thoracic and lumbar spine normal to inspection Skin General skin exam: no rashes or lesions noted Neuro General: patient oriented x3 and no focal motor deficits Cranial nerves: Yes CN's II-XII intact bilaterally Extrem General: Yes normal to inspection, Yes no clubbing, cyanosis or edema and Yes no calf tenderness Psych Appearance: grossly normal and well kempt Speech and movement: Normal speech and movement present Results Reviewed Results Reviewed: CT SCAN OF CHEST IMPRESSION: Stable lung nodules as described. Coronary artery calcifications. Emphysema and interstitial lung disease. Fleischner guidelines were followed. Electronically signed by: Oriana Pino MD 06/08/2024 04:42 PM EDT Patient: Akil Morales ECHOCARDIOGRAM Ordering Physician: Catrachito Manzo MD Date of Service: 07/27/24 Procedure(s): CA echo transthoracic complete Accession Number(s): cc: Catrachito Manzo MD~ Transthoracic Echocardiogram Patient (Last, First, Middle): Akil Morales, Melody Gender: Male Date of : 1945 Age: 79 Procedure Date: 07/27/2024 Procedure Type: Transthoracic Echocardiogram Location: OP Height: 185.42 cm Weight: 108.86 kg BSA: 2.33 m2 Heart Rate: bpm BP: 124 / 60 mmHg Wet Process Miller Head Assistant: Referring MD: Catrachito Manzo MD Rewinder Operator Helper: Jessee Dean MD Symptoms: I26.99 - Other pulmonary embolism without acute cor pulmonale Study Quality: Fair ECG Rhythm: Sinus CONCLUSION - 1. Severely enlarged right ventricle with reduced systolic function 2. Low normal LV ejection fraction with moderate LVH with grade 1 diastolic dysfunction 3. Severely elevated right ventricular systolic pressure and mildly elevated right atrial pressures 4. Fljw-at-wcdkbbpp tricuspid and mitral regurgitation 5. Upper limits of normal ascending aortic size 6. No gross pericardial effusion Findings Left Ventricle Normal left ventricular cavity size. There is moderately increased left ventricular wall thickness. The left ventricular systolic function is low normal. The visually estimated ejection fraction is between 50-55%. There is a flattened septum in systole consistent with right ventricular pressure overload. Spectral Doppler is indicative of an impaired relaxation filling pattern. E/E prime ratio is <8, consistent with normal filling pressures. Evidence suggests grade I (mild) diastolic dysfunction. Right Ventricle Severely increased right ventricular cavity size. RV systolic function appears to be reduced although TAPSE is within normal limits, this may be erroneous measurement of overall RV systolic function Atria The left atrium is normal in size. There is no evidence of interatrial shunt. The right atrium is severely dilated. Aortic Valve Normal aortic valve structure and function. There is no aortic valve stenosis. There is no aortic valve regurgitation. Mitral Valve Normal mitral valve structure and function. There is mild to moderate mitral valve regurgitation. There is no mitral valve stenosis. Pulmonic Valve The pulmonic valve is likely normal. Tricuspid Valve Normal tricuspid valve structure. There is mild to moderate tricuspid valve regurgitation. Mildly elevated right atrial pressure. Severe pulmonary hypertension is present. Great Vessels The pulmonary artery was not well visualized. There is no evidence of plaque in the aorta. Venous The inferior vena cava is mildly dilated and collapses less than 50% with inspiration. Pericardium/Pleural There is no evidence of pericardial effusion. Prior Study Comparison No prior study available for comparison. Assessment & Plan Assessment & Plan (1) Pulmonary hypertension: Comment: THE CURRENT ECHOCARDIOGRAM INDICATES THAT HE HAS SIGNIFICANT PULMONARY HYPERTENSION. THERE IS MARKED ENLARGEMENT OF THE RIGHT VENTRICLE. RVSP= 89 Code(s): I27.20 - Pulmonary hypertension, unspecified Category: Medical Plan: AT PRESENT HE SHOULD CONTINUE TO USE OXYGEN TO KEEP O2 SAT JUST ABOVE 90%. HE IS SCHEDULED TO SEE HIS MARINE FIREMAN IN THE NEXT COUPLE OF WEEKS AND I HOPE THE FINDINGS OF ECHOCARDIOGRAM ARE REVIEWED, FOR ANY FURTHER ADVICE. ADDITIONAL MEDICATION SUCH SILDENAFIL FOR PULMONARY HYPERTENSION, COULD BE ADDED, BUT BECAUSE OF HIS HISTORY OF ARRHYTHMIAS AND SYNCOPAL EPISODES. I HIM AFRAID TO HAD ANY MEDICATION AT THIS TIME I WILL LOOK INTO POSSIBILITY OF REFERRING HIM TO A PULMONARY HYPERTENSION SPECIALIST (2) Pulmonary embolism: Comment: PATIENT HAS HISTORY OF PULMONARY EMBOLISMS SINCE 2021 AND IT IS BEING TREATED WITH ANTICOAGULATION( ELIQUIS 5 MG BID ) Code(s): I26.99 - Other pulmonary embolism without acute cor pulmonale Category: Medical Plan: CONTINUE ELIQUIS 5 MG B.I.D. (3) Pulmonary nodules: Comment: A NEW 6 MM PULMONARY NODULE IN RIGHT APEX . THE CURRENT CT SCAN SHOWS NO CHANGE IN THE NODULAR DENSITIES. THESE ARE NONSPECIFIC. Code(s): R91.8 - Other nonspecific abnormal finding of lung field Category: Medical Plan: AGAIN THE PET-CT SCAN IN ABOUT A YEAR AGAIN (4) Respiratory failure with hypoxia: Comment: PATIENT HAS RESTING WELL EXERCISE INDUCED HYPOXEMIA. O2 SAT AT REST 87-89%. 6 MINUTES WALK, SHOWED QUICK DECOMPENSATION. HE DEFINITELY FEELS BETTER SINCE HE IS USING OXYGEN. HIS O2 SATURATION AT REST IS CONTROLLED WITH O2 3.5 L/MINUTE. WITH ANY PHYSICAL ACTIVITY HE DESATURATES QUICKLY, AND HE HAS TO INCREASE THE O2 FLOW TO 4-6 L/MINUTE. Code(s): J96.91 - Respiratory failure, unspecified with hypoxia Category: Medical Plan: CONTINUE USING O2, 3.5 L PER MINUTE AT REST AND 4-6 L WHEN GOING OUTDOORS. (5) Polycythemia secondary to hypoxia: Comment: PATIENT HAS HISTORY OF WHAT HE DESCRIBES HEMOCHROMATOSIS FOR THE PAST MANY YEARS. RETROSPECTIVELY I THINK HE HAS HAD CHRONIC HYPOXEMIA CONTRIBUTING TO POLYCYTHEMIA. HE HAS BEEN TREATED IN THE PAST WITH PHLEBOTOMIES BUT NOW HAS NOT REQUIRED FOR THE LAST 3 YEARS LOST HEMATOCRIT 48. Code(s): D75.1 - Secondary polycythemia Category: Medical Plan: HE DOES NOT NEED ANY PHLEBOTOMY AT THIS TIME. HE MAY CONTINUE FOLLOW-UP WITH HIS FOUNDER AND CHIEF TECHNICAL OFFICER ON A YEARLY BASIS. (6) Pulmonary fibrosis: Comment: HIS CT SCAN OF THE CHEST HAS SHOWN PULMONARY EMPHYSEMA AND INTERSTITIAL LUNG DISEASE. MOST LIKELY HE HAS CHRONIC PULMONARY FIBROSIS, IT IS MILD TO MODERATE. CONTRIBUTING TO HIS HYPOXEMIA. Code(s): J84.10 - Pulmonary fibrosis, unspecified Category: Medical Plan: USE OXYGEN SUPPLEMENTATION NOTED ABOVE. Coding Level of Care Code Est Pt Level 4 (48828) Diagnoses Pulmonary hypertension I27.20 Pulmonary embolism I26.99 Pulmonary nodules R91.8 Respiratory failure with hypoxia J96.91 Polycythemia secondary to hypoxia D75.1 Pulmonary fibrosis J84.10
== END 2024-08-01 11:20 | disposition home or self-care (01) ==
PROVIDERS: PCP Internal Medicine; Visit Provider Internal Medicine
DX: I27.20 Pulmonary hypertension, unspecified (principal); I26.99 Other pulmonary embolism without acute cor pulmonale; R91.8 Other nonspecific abnormal finding of lung field; J96.91 Respiratory failure, unspecified with hypoxia; D75.1 Secondary polycythemia; J84.10 Pulmonary fibrosis, unspecified
CPT/HCPCS: 99214

== ENCOUNTER → 2024-08-01 10:40 | Outpatient (BNVA) | payer MEDICARE, SELFPAY | PROVIDERS: PCP Internal Medicine; Visit Provider Internal Medicine | DX: I27.20 Pulmonary hypertension, unspecified (principal); I26.99 Other pulmonary embolism without acute cor pulmonale; R91.8 Other nonspecific abnormal finding of lung field; J96.91 Respiratory failure, unspecified with hypoxia; D75.1 Secondary polycythemia; J84.10 Pulmonary fibrosis, unspecified | CPT/HCPCS: 99212 ==